=== PATIENT | male | born 1955 | race Caucasian/White ===

== ENCOUNTER → 2017-01-20 | Outpatient (CLI) | payer OTHER ==
[~2017-01-20] MED LIST: ACETAMINOPHEN/CODEINE 300/30MG TAB PO ONE; ALPR1TAB3 PO; AMOX875T PO; ASPI81TA28 PO; CYM/60 PO; DONE1TAB26 PO; DRGTP100 TD; FENT75DI2; FNTTP50 TD; ISR/30 PO; MRP15 PO; NEBULIZER INH; NTRGSL/4 UT; PRD10 PO; PRVHFAIN; SYMIN160 INH; TRAZ100T29 PO
--- NOTE | 2017-01-20 13:47 | DIAGNOSTIC IMAGING REPORT ---
PET/CT HISTORY: MALIGNANT NEOPLASM TECHNIQUE: PET/CT was performed from the base of the skull through the pelvis following the intravenous administration of 11.6 mCi of F18-FDG. Non-contrast CT imaging was performed over the same range without breath-hold for attenuation correction of PET images and anatomic correlation, but not for primary interpretation as it is not of standard diagnostic quality. CT DOSE: COMPARISON: Outside hospital chest abdomen and pelvis CT 12/27/2016. FINDINGS: HEAD AND NECK: Symmetric FDG uptake within the brain. There is lower cervical/supraclavicular lymphadenopathy which demonstrates intense FDG uptake with an SUV max of 6.6. Dominant lymph node on the right measures 2.5 cm. CHEST: Multiple enlarged and FDG avid coalescing lymph nodes throughout the mediastinum and extending into the right hilum. There is also perihilar FDG avid masslike opacities with multiple scattered perihilar nodules within the right upper lobe. There is also interstitial thickening within the majority of the right upper lobe and masslike densities abutting the right major fissure. These areas demonstrate intense FDG uptake with an SUV max of 7 at the right hilum. The right apical soft tissue tubular density is suggestive of peribronchial spread. Interstitial and pleural thickening within the right upper lobe is highly suggestive of lymphangitic spread of disease. A 7 mm irregular density within the left lung apex on image 58. This may represent an area of scarring. This does not demonstrate abnormal FDG uptake but is likely below the threshold for PET imaging. Emphysema. Severe stenosis within the right upper lobe bronchus and mild narrowing of the bronchus intermedius. There is moderate compression of the SVC ABDOMEN/PELVIS: Below the diaphragm, tracer is distributed physiologically in the gastrointestinal and genitourinary tracts. There is no significant lymphadenopathy and no FDG-avid disease. MUSCULOSKELETAL: There are few scattered foci of FDG uptake seen within the right humeral head, left acromion, right posterior seventh rib, right lateral eighth rib, right iliac crest, right posterior iliac bone, and left femoral neck. No definite corresponding lesion by CT. Regardless, these areas are highly suspicious for metastatic foci. Mild FDG uptake seen within the right mandible and left pterygoid plates. This could be physiologic with misregistration rather than abnormal osseous uptake. IMPRESSION: 1. Multiple enlarged and FDG avid lymph nodes throughout the mediastinum and extending into the right hilum consistent with malignancy. This favors a primary bronchogenic malignancy. There is also bilateral FDG avid lower cervical and supraclavicular lymphadenopathy. 2. Right perihilar FDG avid opacities with both peribronchial and lymphangitic spread of disease. This could also be due to a combination of superimposed post obstructive pneumonitis. There are few right perihilar FDG avid nodules and FDG avid pleural nodularity abutting the right major fissure. 3. A few scattered foci of FDG uptake within the osseous structures as described above without definite corresponding abnormality by CT. Regardless, this is highly suspicious for metastatic disease. Electronically signed by: Dashawn Dietz M.D. 01/20/2017 1:45 PM Dictated Date/Time: 01/20/2017 1:07 PM
== END | disposition home or self-care (01) ==
LOC: C.PET 07:54
PROVIDERS: ATTEND Physician Assistant
DX: C80.1 Malignant (primary) neoplasm, unspecified (principal)

== ENCOUNTER 2017-01-29 11:00 | Inpatient (IN) | payer OTHER ==
[2017-01-18 09:40] VITALS: BMI 24.0
[~2017-01-29] VITALS: Ht 175.3 cm; Wt 75.9 kg
[2017-01-29] VITALS (8 sets, daily range): BP systolic 102–121; BP diastolic 64–86; PULSE 87–124; TEMP 36.6–38; O2SAT 90–96; Ht 175.3 cm; Wt 75.9 kg
--- NOTE | 2017-01-29 06:59 | History and Physical ---
History & Physical Date Jan 29, 2017. Chief Complaint Lung Mass History of Present Illness The patient is a 61 year old male with complaints of Lung Mass 61-year-old male presents to the office to follow CT of the chest. Prior records reviewed. PMHx includes: Pulmonary emphysema, anxiety, hypertension, hematuria, pulmonary nodule, hepatitis C, history of head trauma. He has a h/o tobacco: 50+ pack year (1-2ppd since age 11yo, quit 2017) with dust exposure. Patient initially seen in the office 12/2015 with history of emphysema and dyspnea on exertion. W/U notable for PFTs consistent with reversable obstructive lung disease and CT notable for 4mm RUL lung nodule (as below). CT chest 01/01/2016 without evidence of interstitial lung disease notable for some changes of COPD. There is a right upper lobe lung nodule measuring 4mm. Unfortunately, he was a no-show for his follow-up appointment last year. Patient presents today with 6-month h/o progressive dyspnea and chronic cough. Cough paroxysm may be severe in nature and productive of phlegm occassionally yellow in the mornings. HE reports come cough with food as well. He was evaluated in the [facility] ER 12/27/16 for chest discomfort, dyspnea and abdominal pain. S/U included CXR suggeive of right hilar mass with subsequent CT chest (as below). WBC: 9.2. GFR: > 60. He was prescribed Ceftin x 10-days EKG : NSR. H CT chest 12/27/2016 describes diffuse mediastinal adenopathy with consolidation in the posterior segment of the right upper lobe. Consolidation within the posterior segment of the right upper lobe was attributed to postobstructive pneumonia. There are masses in the right upper lobe as well. There is a large area of adenopathy identified at the level of the subcarinal space at the takeoff of the left pulmonary artery measuring 7.8 x 6.5 centimeters. There is diffuse adenopathy identified in the right hilar region, right infrahilar region , subcarinal space, precarinal space, right lower paratracheal, right upper paratracheal, pretracheal, and left upper paratracheal regions. This is diffuse. There is a large right low lower paratracheal adenopathy measuring 6.4 per x 3.5 centimeters with mild deviation of the trachea to the left. This is concerning for malignancy. CT Abdomen and pelvis: benign. PFT 12/2015: FVC: 2.41/60 % (19 % change), FEV1: 1.02/32 % (38 % change,) FEV1/FVC: 42, FEF 25-75 %: 0.4/12 % (73 % change), FVC: 2.41/60 %, T.31 /86 %, RV: 2.9/130 %, DLCO:80% Additional History Hepatic Disease: No Endocrine Disorder: No Kidney Disease: No Hypertension: Yes Heart Disease: Yes Bleeding Tendencies: No Infectious Diseases: No Allergies Coded Allergies: Azithromycin (Unverified Allergy, Unknown, PER OR BOOOKING SHEET - 01/26/17 , 01/26/17) Latex1 -Allergic Contact Dermititis (Unverified Allergy, Unknown, PER OR BOOKING SHEET 01/26/17, 01/26/17) Home Medications Scheduled Alprazolam (Xanax), 1 MG PO QID Aspirin (Aspirin Ec), 81 MG PO AFTERNOON Donepezil Hydrochloride (Donepezil Hcl), 1 TAB PO QAM Duloxetine HCl (Cymbalta), 1-2 TAB PO QAM Isosorbide Dinitrate (Isordil), 30 MG PO QAM Trazodone Hcl (Trazodone), 2 TAB PO HS [Nebulizer ], Unknown Dose INH UD Scheduled PRN Nitroglycerin (Nitrostat), 0.4 MG UT PRN PRN for CHEST PAIN Miscellaneous Medications Albuterol (Ventolin Hfa), Unknown Dose Physical Examination Skin: warm/dry, no rash Eyes: normal inspection, EOMI, sclerae normal ENT: normal ENT inspection, pharynx normal Head: normocephalic, atraumatic Neck: supple, no adenopathy, trachea midline Respiratory/Chest: + pertinent finding (diminished lung sounds throught out ) Cardiovascular: regular rate, rhythm, no edema, no murmur Abdomen / GI: normal bowel sounds, non tender Back: normal inspection Extremities: normal inspection, normal range of motion Neurologic/Psych: no motor/sensory deficits, alert, normal reflexes, oriented x 3 Diagnosis Lung Mass ASA Classification: ASA Class III Plan of Treatment Flexible bronchoscopy, EBUS and ENB with TTNA, TBNA, Tbbx, cytology brushing and BAL
[~2017-01-29 11:00] MED LIST changes: -ACETAMINOPHEN/CODEINE 300/30MG TAB PO ONE; -AMOX875T PO; -DRGTP100 TD; -FENT75DI2; -FNTTP50 TD; +LACTATED RINGER'S 1000ML 1,000 ML IV SCH; -MRP15 PO; -PRD10 PO; -SYMIN160 INH
[2017-01-29] MEDS ORDERED: FENTANYL CITRATE INJ 50 MCG/1 ML 2 ML VIAL ONE (11:04)
[2017-01-29] MEDS ORDERED: MIDAZOLAM HCL 1 MG/ML 2ML VIAL ONE (11:04)
[2017-01-29] MEDS ORDERED: FENT75DI2 (11:42)
[2017-01-29] MEDS ORDERED: FNTTP50 TD (11:43)
--- NOTE | 2017-01-29 11:50 | DIAGNOSTIC IMAGING REPORT ---
SINGLE VIEW CHEST CLINICAL HISTORY: Lung mass. FINDINGS: An AP, portable, upright chest radiograph is compared to chest x-ray and chest CT dated 12/27/2016. The examination is degraded by portable technique and patient rotation. The heart is top normal in size and there is atherosclerotic calcification of the thoracic aorta. Advanced emphysema and chronic interstitial thickening is unchanged. A large right perihilar/upper lobe lung mass is again seen. There is increasing patchy airspace consolidation throughout the right upper lobe as compared to previous. The left lung is grossly clear. No large pleural effusion or pneumothorax is seen. The skeletal structures are osteopenic. The bony thorax is grossly intact. IMPRESSION: 1. Advanced emphysema with a large right perihilar/upper lobe lung mass. 2. There is increasing airspace consolidation throughout the right upper lobe. This likely represents a postobstructive pneumonitis, with probable associated lymphangitic spread of tumor. Clinical correlation will be required. 3. The left lung appears clear. Electronically signed by: Aamir Carmichael M.D. 01/29/2017 11:49 AM Dictated Date/Time: 01/29/2017 11:46 AM
[2017-01-29 12:08] LABS: ARTERIAL BLD GAS O2 SATURATION 98.6 % (90-95); ARTERIAL BLOOD GAS BASE EXCESS 6.9 mEq/L (-9-1.8); ARTERIAL BLOOD GAS HCO3 32 mmol/L (19-24); ARTERIAL BLOOD GAS PO2 123 mm/Hg (80-95); ARTERIAL BLOOD GAS pH 7.44 (7.35-7.45)
[2017-01-29 12:09] LABS: ALLEN TEST POS (POS); O2 ADMINISTRATION 3 L
[2017-01-29] MEDS ORDERED: ACETAMINOPHEN/CODEINE 300/30MG TAB PO ONE (14:00)
[2017-01-29] MEDS ORDERED: LEVALBUTEROL 1.25MG/0.5ML NEB INH PRN (15:15)
[2017-01-29] MEDS ORDERED: LORAZEPAM 1 MG TAB PO PRN (15:15)
[2017-01-29] MEDS ORDERED: VANCOMYCIN CONSULT ACTIVE PRN (15:45)
[2017-01-29] MEDS ORDERED: PIPERACILL/TAZOBAC CONSULT ACTIVE PRN (15:45)
--- NOTE | 2017-01-29 15:46 | Pulmonary Consultation ---
History General Date of Service: Jan 29, 2017. Stated Complaint: Hypoxia, Post Op Pneumonia HPI The patient is a 61 year old male who presents to [facility] with complaints of Hypoxia, Post Op Pneumonia. The patient's primary care provider is Rikki Dhaliwal. 61-year-old male being admitted for acute on chronic respiratory insufficiency: He has a PmHx significant for: ACOS (Very sever COPD-FEV1: 32%) (Significant reversibility in the FEV1&FVC), anxiety, hypertension, hematuria, hepatitis C and head trauma. He has an h/o tobacco: 50+ pack year (1-2ppd since age 11yo, quit 2017). He was recent seen and evaluated in the [facility] ER 12/27/16 for chest discomfort, dyspnea and abdominal pain. S/U included CXR suggestive of right hilar mass with subsequent CT chest (as below). WBC: 9.2. GFR: > 60. He was prescribed Ceftin x 10-days EKG: NSR. CT chest 12/27/2016 describes diffuse mediastinal adenopathy with consolidation in the posterior segment of the right upper lobe. Consolidation within the posterior segment of the right upper lobe was attributed to post obstructive pneumonia. There are masses in the right upper lobe as well. There is a large area of adenopathy identified at the level of the sub carinal space at the takeoff of the left pulmonary artery measuring 7.8 x 6.5 centimeters. There is diffuse adenopathy identified in the right hilar region, right infrahilar region, sub carinal space, pre- carinal space, right lower para-tracheal, right upper para-tracheal, pre- tracheal, and left upper para-tracheal regions. This is diffuse. There is a large right low lower para-tracheal adenopathy measuring 6.4 per x 3.5 centimeters with mild deviation of the trachea to the left. He was seen in the [facility] pulmonary clinic and set up for EBUS/ENB for further work-up. He presented today for the procedures and as noted to be severely decompensated and the procedure was d/c. Previous Evaluation: Patient initially seen in the office [address] thorax 01/01/2016 noted a RUL 4mm nodule with associated emphysema. His PFTs at that time where consistent with reversible obstructive lung disease. Unfortunately, he was a no-show for his follow-up appointment last year. PFT 12/2015: FVC: 2.41/60 % (19 % change), FEV1: 1.02/32 % (38 % change,) FEV1/FVC: 42, FEF 25-75 %: 0.4/12 % (73 % change), FVC: 2.41/60 %, T.31 /86 %, RV: 2.9/130 %, DLCO:80% ABG (01/29/17) 7.44/48/123/323Lnc Recently seen in the office with an SaO2 of 94% on RA Historian: patient, EMS Review of Systems Constitutional: reports: as stated in HPI Eyes: reports: no symptoms ENT: reports: no symptoms Cardiovascular: reports: as stated in HPI Respiratory: reports: as stated in HPI Gastrointestinal: reports: no symptoms Genitourinary - Male: reports: no symptoms Musculoskeletal: reports: as stated in HPI Integumentary: reports: no symptoms Neurologic: reports: no symptoms Psychiatric: reports: no symptoms Endocrine: no symptoms Hematologic / Lymphatic: no symptoms Allergic / Immunologic: no symptoms Past Medical History Past Medical History: 1. Agoraphobia with panic attacks 2. Chest pain 3. ACOS (Very sever COPD-FEV1: 32%)(Significant reversibility in the FEV1&FVC) 4. Chronic pain 5. Chronic viral hepatitis C 6. Dyspnea 7. Heart disease 8. Hypertension 9. Intervertebral disc degeneration, lumbar region 10. Tobacco use disorder 11. Lung Mass Social History Current every day smoker: 50+ pack year (1-2ppd since age 11yo, quit 2017) Denies alcohol consumption History of marijuana use Hx Tobacco Use In Past Year?: Yes (10 CIGS PER DAY....SMOKING SINCE AGE 11) Smoking Status: Current Every Day Smoker Allergies Coded Allergies: No Known Allergies (Unverified , 01/29/17) Current Medications Reported Home Medications Medications Dose Route/Sig Max Daily Dose Days Date Category Dose Instructions Duragesic (Fentanyl) 50 Mcg Tdsy 50 Mcg TD [id number] 01/29/17 Reported [Nebulizer ] Unknown Strength Unknown Dose INH UD 01/18/17 Reported UNKNOWN NAME AND DOSE OF NEB - PT REPORTS DOES NOT USE THIS CONSISTENTLY Ventolin Hfa (Albuterol) Unknown Strength Aers Unknown Dose 01/18/17 Reported 2 PUFFS PRN SOB PT INSTRUCTED TO BRING THIS INAHLER DAY OF SURGERY Aspirin Ec (Aspirin) 81 Mg Tab 81 Mg PO AFTERNOON 01/18/17 Reported PT INSTRUCTED TO CALL SURGEON FOR PRE OP INSTRUCTIONS Nitrostat (Nitroglycerin) 0.4 Mg Tab 0.4 Mg UT PRN PRN 01/18/17 Reported Xanax (Alprazolam) 1 Mg Tab 1 Mg PO QID 01/18/17 Reported Cymbalta (Duloxetine HCl) 60 Mg Cap 1-2 Tab PO QAM 01/18/17 Reported Donepezil Hcl (Donepezil Hydrochloride) 10 Mg Tab 1 Tab PO QAM 01/18/17 Reported Isordil (Isosorbide Dinitrate) 30 Mg Tab 30 Mg PO QAM 01/18/17 Reported Trazodone (Trazodone HCl) 100 Mg Tab 2 Tab PO HS 01/18/17 Reported Physical Physical Exam Vital Signs: Date Time Temp Pulse Resp B/P Pulse Ox O2 Delivery O2 Flow Rate FiO2 01/29/17 15:25 36.7 105 20 102/64 92 Nasal Cannula 4.0 01/29/17 14:35 Nasal Cannula 4.0 01/29/17 14:31 36.8 110 18 112/78 96 4.0 01/29/17 11:44 38 124 24 119/86 95 Nasal Cannula 3 General Appearance: cachetic Head: NORMOCEPHALIC, ATRAUMATIC Eyes: PERRLA, NO DISCHARGE, EOMI, SCLERAE NORMAL, CONJUNCTIVAE NORMAL ENT: NORMAL EAR EXAM, NORMAL NASAL EXAM, NORMAL MOUTH EXAM, NORMAL THROAT EXAM , NORMAL DENTAL EXAM Neck: NORMAL RANGE OF MOTION, NO TENDERNESS, NO STRIDOR, NO LYMPHADENOPATHY, NO MENINGISMUS, NO NUCHAL RIGIDITY Respiratory: other (decreased breath sounds right hemithorax especially the apical anterior region/notable rhonchi or wheezing appreciated on the left hemithorax) Cardiovasular: REGULAR RATE/RHYTHM, NORMAL S1S2, NO M/G/R, NO MURMUR, NO GALLOP , NO RUB Abdomen: NON TENDER, NORMAL BOWEL SOUNDS, NO REBOUND, NO MASSES, NO GUARDING, NO ORGANOMEGALY, NORMAL RECTAL EXAM Genitourinary - Male: EXTERNAL GENITALIA NORMAL Back: NORMAL INSPECTION, NO MIDLINE TENDERNESS, NO CVA TENDERNESS, NO PARAVERTEBRAL TTP Upper Extremities: NO EDEMA, NO DEFORMITY, NORMAL ROM Lower Extremities: NO EDEMA, NO DEFORMITY, NORMAL ROM Pulses: carotid (R) (2+), carotid (L) (2+), posterior tibial (R), posterior tibial (L) Neuro: ALERT, ORIENTED x 3, NORMAL MOTOR EXAM, NORMAL SENSATION, NORMAL CEREBELLAR EXAM, NORMAL SPEECH Reflexes: biceps (R) (2+), bicpes (L) (2+), achilles (R) (2+), achilles (L) (2+ ) Babinski Testing: right (downgoing), left (downgoing) Psychiatric: NORMAL AFFECT, NO SUICIDAL IDEATION, CONTRACTS FOR SAFETY Diagnostics Labs Results Past 24 Hours Test 01/29/17 11:45 01/29/17 15:10 Range/Units Arterial Blood pH 7.44 7.35-7.45 Arterial Blood Partial Pressure CO2 48 35-46 mmHg Arterial Blood Partial Pressure O2 123 80-95 mm/Hg Arterial Blood HCO3 32 19-24 mmol/L Arterial Blood Oxygen Saturation 98.6 90-95 % Arterial Blood Base Excess 6.9 -9-1.8 mEq/L Arterial Blood Gas Delivery 3 L Eliceo Test POS POS Diagnostic Radiology Increased hilar fullness on the right hemithorax with diffuse infiltrative pattern mostly in the right upper/apical subsegment's Impression Assessment and Plan 61-year-old gentleman with lung mass being admitted for acute on chronic respiratory insufficiency: #1 lung mass: Patient was to undergo either/ENB today for further evaluation of his lung mass but presented in notable acute on chronic respiratory insufficiency. The lung mass is most likely primary lung carcinoma but at this time no definitive diagnosis has been made. CT as well as PET scan have been reviewed and once again are highly suggestive of primary lung carcinoma. As the patient cannot undergo procedure at this time we'll obtain sputum cytology for possible diagnosis. We'll also repeat high resolution CAT scan for further evaluation and sent for MRI of the head for possible metastatic lesion as the patient does complain of some vertigo type symptoms. #2 pneumonia: Patient possibly could have postobstructive pneumonia will initiate on Zosyn and vancomycin disease had multiple hospital admissions over the last 2-[address] [facility]. #3 ACOS: The patient has very severe COPD and FEV1 of 32%. He is also noted on pulmonary function tests to have significant reversibility both in his FEV1 and FVC. At this time we will initiate IV steroids and nebulizers. We'll hold off on his outpatient medication as he is unable to perform proper inhalation/ inhaler technique. #4 chest pain: Penis consistent with musculoskeletal as well as pleurisy. At this time we'll initiate Tylenol/codeine for musculoskeletal discomfort and if patient's renal function is within normal limits initiate Toradol IV.
[2017-01-29] MEDS: METHYLPREDNISOLONE IV 40 MG in SYRINGE 0 ML IV SCH (16:01)
[2017-01-29] MEDS ORDERED: SYMIN160 INH (16:07)
[2017-01-29] MEDS ORDERED: POLYETHYLENE (MIRALAX) 17 GM PACK PO PRN (16:15)
[2017-01-29] MEDS ORDERED: PNEUMOCOCCAL POLYSACCHARIDES 25 MCG/0.5 ML VIAL/SYR IM. ONE (16:15)
[2017-01-29] MEDS ORDERED: ONDANSETRON INJ 2 MG/ML 2 ML VIAL IV PRN (16:15)
[2017-01-29] MEDS ORDERED: NITROGLYCERIN 0.4 MG SL PER TAB CHARGE UT PRN (16:15)
[2017-01-29] MEDS ORDERED: ACETAMINOPHEN 325 MG TAB PO PRN (16:15)
[2017-01-29] MEDS ORDERED: MAGNESIUM HYDROXIDE SUSP 30 ML UDC PO PRN (16:15)
[2017-01-29] MEDS ORDERED: PNEUMOCOCCAL ADMINISTRATION CHARGE ONE (16:15)
[2017-01-29] MEDS ORDERED: ALUMINUM/MAGNESIUM/SIMETH (MAALOX MAX) 30 ML UDC PO PRN (16:15)
--- NOTE | 2017-01-29 16:54 | History and Physical ---
History & Physical Date & Time of Service: Jan 29, 2017 at 16:16 Chief Complaint: Hypoxia, Post Op Pneumonia Primary Care Physician: Gloria Dhaliwal History of Present Illness Source: patient, clinic records, hospital records This is a 61 y/o male with a history of RUL masses and adenopathy, COPD, HTN, anxiety and agoraphobia, chronic hepatitis C, and chronic pain who presented for a direct admission following a bronchoscopy attempt today, 01/29, with Dr. Jones. The patient had been scheduled for EBUS/ENB for further work up of CT findings in December 2015 that were concerning for malignancy. The procedures were aborted after the patient began to decompensate and go into respiratory failure. Currently, the patient complains of a 8/10 sharp, pulling pain in his right chest, right neck/jaw and right arm. He also complains of a productive cough with thick, white sputum. He states that he is more short of breath than usual. He denies any wheezing. The patient denies any fevers or chills, although he was febrile earlier prior to admission per hospital records. The patient denies any sweats recently, but states that he used to get night sweats. The patient reports numbness all over his body, but states that this is chronic and has been going on for several years. The patient denies fevers, chills, sweats, palpitations, claudication, wheezing, nausea, vomiting, abdominal pain, dysuria, hematuria, urinary retention, paralysis, and weakness. Past Medical/Surgical History Right perihilar/RUL mass on CT COPD HTN Anxiety, agoraphobia with panic attacks Chronic pain Chronic hepatitis C Family History Cancer Diabetes mellitus Hypertension Lung disease Myocardial infarction Stroke Social History Smoking Status: Current Every Day Smoker (had quit earlier in 2017, restarted again after finding out about tumor) Smokeless Tobacco Use: No Alcohol Use: none Drug Use: none Marital Status: in relationship Housing status: lives with significant other Allergies Coded Allergies: No Known Allergies (Unverified , 01/29/17) Home Medications Scheduled Alprazolam (Xanax), 1 MG PO QID Aspirin (Aspirin Ec), 81 MG PO AFTERNOON Budesonide/Formoterol Fumarate (Symbicort 160/4.5 Inhaler), 2 PUFFS INH BID Donepezil Hydrochloride (Donepezil Hcl), 1 TAB PO QAM Duloxetine HCl (Cymbalta), 1 TAB PO QAM Fentanyl (Duragesic), 50 MCG TD [id number] Isosorbide Dinitrate (Isordil), 30 MG PO QAM Trazodone Hcl (Trazodone), 2 TAB PO HS [Nebulizer ], Unknown Dose INH UD Scheduled PRN Nitroglycerin (Nitrostat), 0.4 MG UT PRN PRN for CHEST PAIN Miscellaneous Medications Albuterol (Ventolin Hfa), Unknown Dose Review of Systems Constitutional: No chills, No fever, No sweats Eyes: No diplopia, No eye pain, No worsening of vision ENT: No hearing loss, No sore throat, No trouble swallowing Respiratory: + cough, + shortness of breath, + sputum, No wheezing Cardiovascular: + chest pain, No claudication, No palpitations Abdomen: No nausea, No pain, No vomiting Musculoskeletal: + joint pain (pain in right arm/jaw), No calf pain, No muscle pain Genitourinary - Male: No dysuria, No hematuria, No urinary retention Neurologic: + numbness/tingling (chronic), No paralysis, No weakness Integumentary: No color change, No itch, No rash Physical Exam Vital Signs Date Time Temp Pulse Resp B/P Pulse Ox O2 Delivery O2 Flow Rate FiO2 01/29/17 15:25 36.7 105 20 102/64 92 Nasal Cannula 4.0 01/29/17 14:35 Nasal Cannula 4.0 01/29/17 14:31 36.8 110 18 112/78 96 4.0 01/29/17 11:44 38 124 24 119/86 95 Nasal Cannula 3 General Appearance: WD/WN, no apparent distress, + pertinent finding (appears chronically ill) Head: normocephalic, atraumatic Eyes: normal inspection, PERRL, EOMI ENT: normal ENT inspection, hearing grossly normal, pharynx normal Neck: supple, no JVD, trachea midline Respiratory/Chest: no respiratory distress, + rhonchi, + wheezing, + pertinent finding (resting on 4L) Cardiovascular: regular rate, rhythm, no gallop, no murmur Abdomen/GI: normal bowel sounds, non tender, soft Extremities/Musculoskelatal: normal inspection, no calf tenderness, no pedal edema Neurologic/Psych: alert, normal mood/affect, oriented x 3 Skin: normal color, warm/dry, no rash Diagnostics Laboratory Results Results Past 24 Hours Test 01/29/17 11:45 01/29/17 15:10 Range/Units Arterial Blood pH 7.44 7.35-7.45 Arterial Blood Partial Pressure CO2 48 35-46 mmHg Arterial Blood Partial Pressure O2 123 80-95 mm/Hg Arterial Blood HCO3 32 19-24 mmol/L Arterial Blood Oxygen Saturation 98.6 90-95 % Arterial Blood Base Excess 6.9 -9-1.8 mEq/L Arterial Blood Gas Delivery 3 L Eliceo Test POS POS Diagnostic Radiology Per Dr. Jones's notes: CT chest 01/01/2016 without evidence of interstitial lung disease notable for some changes of COPD. There is a right upper lobe lung nodule measuring 4mm. CT chest 12/27/2016 describes diffuse mediastinal adenopathy with consolidation in the posterior segment of the right upper lobe. Consolidation within the posterior segment of the right upper lobe was attributed to postobstructive pneumonia. There are masses in the right upper lobe as well. There is a large area of adenopathy identified at the level of the subcarinal space at the takeoff of the left pulmonary artery measuring 7.8 x 6.5 centimeters. There is diffuse adenopathy identified in the right hilar region, right infrahilar region , subcarinal space, precarinal space, right lower paratracheal, right upper paratracheal, pretracheal, and left upper paratracheal regions. This is diffuse. There is a large right low lower paratracheal adenopathy measuring 6.4 per x 3.5 centimeters with mild deviation of the trachea to the left. This is concerning for malignancy. Reviewed the following studies and agree with interpretation as follows: Patient Name: PAT MORALES Unit Number: [id number] Dictated: 01/29/171145 Transcribed: 01/29/171145 EV Printed Date/Time: [~ rep prt dt]/[~ rep prt tm] [~ rep ct labl] - [~ rep ct ivnm] [facility] [place] [address] Dictated: 01/29/171145 Transcribed: 01/29/17 114 EV Printed Date/Time: [~ rep prt dt]/[~ rep prt tm] [~ rep ct labl] - [~ rep ct ivnm] Patient: PAT MORALES Address1: [address] [facility] Rec: [id number] Address2: Acct ID: [id number] [facility] Zip: [place] [address] Date: 1955 Sex: M Room/Bed: Ref Phy: GLORIA DHALIWAL SC: VERENA Att Phy: Pawan Jones MD Report #: [id number] [place] Phy: GLORIA DHALIWAL Test: CXR1P Admit Phy: Internal Investigator: NICO Interpreting Phy: Aamir Carmichael M.D. Diagnosis: LYMPHADENOPATHY Ordering Phy: Pawan Jones MD Service Date: 01/29/17 Admit Date: 01/29/17 MNE: [id number] CONF: DICTATED BY: Aamir Carmichael M.D.]] CC: GLORIA DHALIWAL Thomas W., MD Endcc: [~ rep ct add3]] SINGLE VIEW CHEST CLINICAL HISTORY: Lung mass. FINDINGS: An AP, portable, upright chest radiograph is compared to chest x-ray and chest CT dated 12/27/2016. The examination is degraded by portable technique and patient rotation. The heart is top normal in size and there is atherosclerotic calcification of the thoracic aorta. Advanced emphysema and chronic interstitial thickening is unchanged. A large right perihilar/upper lobe lung mass is again seen. There is increasing patchy airspace consolidation throughout the right upper lobe as compared to previous. The left lung is grossly clear. No large pleural effusion or pneumothorax is seen. The skeletal structures are osteopenic. The bony thorax is grossly intact. IMPRESSION: 1. Advanced emphysema with a large right perihilar/upper lobe lung mass. 2. There is increasing airspace consolidation throughout the right upper lobe. This likely represents a postobstructive pneumonitis, with probable associated lymphangitic spread of tumor. Clinical correlation will be required. 3. The left lung appears clear. Electronically signed by: Aamir Carmichael M.D. 01/29/2017 11:49 AM Dictated Date/Time: 01/29/2017 11:46 AM The status of this report is Signed. Draft = Not yet reviewed or approved by Radiologist. Signed = Reviewed and approved by Radiologist. <AttendingPhy>Pawan Jones MD</AttendingPhy> <FamilyPhy>GLORIA DHALIWAL</FamilyPhy> <PrimaryPhy>GLORIA DHALIWAL</PrimaryPhy> <UnitNumber >[id number]</UnitNumber> <VisitNumber>[id number]</VisitNumber> <PatientName> PAT MORALES</PatientName> <DateOfBirth>1955</DateOfBirth> <Location> [facility]</Location> <ServiceDate>01/29/17</ServiceDate> <MNE>ESINDI</MNE> < OrderingPhy>Pawan Jones MD</OrderingPhy> <OrderingPhyMNE>f rep ord dr eller</OrderingPhyMNE> <DictatingPhyMNE>f rep dict dr eller</DictatingPhyMNE> < CCListMNE>f rep ct mne</CCListMNE> <AdmittingPhyMNE>f pt admit dr eller</ AdmittingPhyMNE> <AttendingPhyMNE>f pt attend dr eller</AttendingPhyMNE> <ConsultingPhyMNE>f pt consult dr eller</ConsultingPhyMNE> <FamilyPhyMNE>f pt fam dr eller</FamilyPhyMNE> <OtherPhyMNE>f pt other dr eller</OtherPhyMNE> < PrimaryPhyMNE>f pt prim care dr eller</PrimaryPhyMNE> <ReferringPhyMNE>f pt referring dr eller</ReferringPhyMNE> Impression Assessment and Plan 61 y/o male with a history of RUL masses and adenopathy, COPD, HTN, anxiety and agoraphobia, chronic hepatitis C, and chronic pain who presented for a direct admission following a bronchoscopy attempt today, 01/29, with Dr. Jones. The patient had been scheduled for EBUS/ENB for further work up of CT findings in December 2015 that were concerning for malignancy. The procedures were aborted after the patient began to decompensate and go into respiratory failure. Currently, patient afebrile and VSS. CXR shows advanced emphysema, large right perihilar/RUL mass, and increased airspace consolidation in RUL which may represent post obstructive pneumonitis/PNA. Likely post obstructive pneumonia secondary to RUL mass--pt scheduled for EBUS/ ENB today, aborted due to respiratory failure -Admit to telemetry -Consult pulmonology, Dr. Jones: Vanc and Zosyn for post obstructive PNA. High resolution chest CT. Check MRI head for mets due to complaints of vertigo. Check sputum cytology. IV steroids and nebs for COPD, hold pt's home regimen. Tylenol #3 for chest pain, can add Toradol if renal function allows. -Vanc and Zosyn IV, pt recently admitted to [facility] -O2 by protocol, currently on 4L. Pt does not wear O2 at home -Sputum cytology -HR CT chest -MRI of head for mets Chest pain/jaw and arm pain right side--pleurisy vs fascia -Tylenol/codeine PO q6h prn pain Severe COPD -Atrovent/Xopenex QIDR -Solu-Medrol 40 mg IV q4h, 3x/day -Hold Symbicort HTN--stable -Continue isosorbide 30 mg PO qd Anxiety/agoraphobia/panic attacks -Continue Ativan 1 mg PO QID and Cymbalta 60 mg PO qd Chronic pain -Continue fentanyl patch 50 mcg TD q72h DVT prophylaxis -Heparin 5000 units SC q12h -VASYL travis and JESICAs Code Status -Level I, FULL RESUSCITATION STATUS Level of Care Telemetry Advanced Directives Existing Living Will: No Existing Power of Steam Fitter: No Resuscitation Status FULL RESUSCITATION VTE Prophylaxis VTE Risk Assessment Done? Y/N: Yes Risk Level: High Given or contraindicated: Unfractionated heparin SQ, T.E.D. Stockings, SCD's Reviewed: Pt Seen/Exam by Me History Pt is still quite SOB, but a bit improved s/p nebs. Still with a feeling of something pulling along the R side of his chest into his neck and jaw. Has not eaten much lately. Agree with HPI/ROS as noted. General Appearance: WD/WN, no apparent distress Respiratory: no respiratory distress, wheezing Cardiovascular: normal peripheral pulses, regular rate, rhythm Gastrointestinal: non tender, soft Extremities: non-tender, no pedal edema Neurologic/Psychiatric: alert, oriented x 3 Skin Characteristics: normal color, warm/dry Assessment/Plan Agree with plan as outlined above Pt with likely lung cancer and now with post-obstructive PNA Zosyn/vanco Several recent hospitalizations with [facility] José Nicotine patch
[2017-01-29] MEDS ORDERED: PIPERACILL/TAZOBAC IV 3.375 GM in DEXTROSE 5% 100ML IV ONE (17:00)
[2017-01-29 17:14] LABS: INR 1.1 (0.9-1.1); PARTIAL THROMBOPLASTIN RATIO 1.1
[2017-01-29 17:22] LABS: HEMATOCRIT 38.6 % (42-52); MEAN CELL VOLUME 93.9 fL (80-100); MEAN CORPUSCULAR HEMOGLOBIN 32.4 pg (25-34); MEAN CORPUSCULAR HGB CONC 34.5 g/dl (32-36); MEAN PLATELET VOLUME 8.7 fL (7.4-10.4); PLATELET COUNT 91 K/uL (130-400); PLT ESTIMATE DECREASED; RED BLOOD COUNT 4.11 M/uL (4.7-6.1); WHITE BLOOD COUNT 9.36 K/uL (4.8-10.8)
[2017-01-29 17:26] LABS: BUN/CREATININE RATIO 15.3 (10-20); CALCIUM 9.3 mg/dl (8.5-10.1); CREATININE 1.1 mg/dl (0.60-1.40)
[2017-01-29 17:28] LABS: ALB/GLOB RATIO 0.6 (0.9-2)
[2017-01-29] MEDS: FENTANYL PATCH REMOVE & WASTE SCH (17:34)
[2017-01-29] MEDS: FENTANYL 50 MCG/HR TDSY TD SCH (17:36)
[2017-01-29] MEDS ORDERED: PIPERACILL/TAZOBAC IV 3.375 GM in DEXTROSE 5% 100ML 100 ML IV SCH (18:00)
[2017-01-29] MEDS ORDERED: VANCOMYCIN INJ 1,850 MG in SODIUM CHLORIDE 0.9% 500ML 500 ML IV SCH (18:00)
[2017-01-29] MEDS: LEVALBUTEROL 1.25MG/0.5ML NEB INH SCH (19:02)
[2017-01-29] MEDS: IPRATROPIUM BROMIDE NEB SOLN 0.02% 2.5 ML VIAL INH SCH (19:02)
[2017-01-29] MEDS: DORNASE ALFA (2500U) 2.5MG/2.5ML INH SCH (19:09)
[2017-01-29] MEDS: ACETAMINOPHEN/CODEINE 300/30MG TAB PO PRN (20:45)
[2017-01-29] MEDS: TRAZODONE HCL 100 MG TAB PO SCH (20:46)
[2017-01-29] MEDS: HEPARIN SOD 5000 UNIT/0.5 ML CARP SQ SCH (20:47)
[2017-01-29] MEDS ORDERED: BUDESONIDE/FORMOTEROL FUMARATE 160/4.5 60 PUFFS/INHALER INH SCH (21:00)
[2017-01-29] MEDS ORDERED: LEVALBUTEROL/IPRATROPIUM NEB INH SCH (21:00)
[2017-01-29] MEDS: ALPRAZOLAM 0.5 MG TAB PO SCH (21:16)
--- NOTE | 2017-01-29 22:48 | Pharmacy Progress Note ---
Pharmacy Antibiotic Consult Date of Service: Jan 29, 2017. Pharmacy Dosing Scope Pharmacy is consulted to initiate VANCOMYCIN IV dosing therapy, order appropriate labs and adjust drug dose/frequency. Subjective The patient is a 61 year old male admitted on Jan 29, 2017 at 13:08. Objective Height (Feet): 5 Height (Inches): 9.00 Weight (Kilograms): 74.000 Lab Results (24hrs): Laboratory Tests Test 01/29/17 16:50 BUN/Creatinine Ratio 15.3 Blood Urea Nitrogen 17 mg/dl Creatinine 1.10 mg/dl White Blood Count 9.36 K/uL Assessment & Plan 61yo male admitted with pneumonia, ordered VANCOMYCIN/ZOSYN. Renal function is good (SCr 1.1, CrCl ~71 ml/min). VANCOMYCIN: * Loading dose: VANCOMYCIN 1850mg (~25mg/kg) IV X 1 dose then VANCOMYCIN 1100mg (~15mg/kg) IV every 12 hours. * Goal trough level estimate: between 15 - 20 mcg/mL. * Estimated Pk parameters: Vd ~0.7 L/kg Ke ~0.063 t1/2 ~11 hours * Trough level has been ordered for: @ 0600. Pharmacy will continue to follow and will adjust dose/frequency as necessary. Thank you
[2017-01-30] VITALS (12 sets, daily range): BP systolic 113–151; BP diastolic 66–85; PULSE 86–94; TEMP 36.4–36.8; O2SAT 87–96
[2017-01-30] MEDS: PIPERACILL/TAZOBAC IV 3.375 GM in DEXTROSE 5% 100ML IV SCH ×4 (00:27→23:55)
[2017-01-30] MEDS: CHECK FENTANYL PATCH PLACEMENT SCH ×4 (00:28→23:56)
[2017-01-30] MEDS: IPRATROPIUM BROMIDE NEB SOLN 0.02% 2.5 ML VIAL INH SCH ×4 (02:18→19:47)
[2017-01-30] MEDS: LEVALBUTEROL 1.25MG/0.5ML NEB INH SCH ×4 (02:18→19:47)
[2017-01-30] MEDS: VANCOMYCIN INJ 1,100 MG in SODIUM CHLORIDE 0.9% 250ML 250 ML IV SCH ×2 (05:25→17:52)
[2017-01-30] MEDS: DORNASE ALFA (2500U) 2.5MG/2.5ML INH SCH ×2 (07:44→19:47)
[2017-01-30 08:14] LABS: CREATININE 0.97 mg/dl (0.60-1.40)
[2017-01-30] MEDS: NICOTINE 21 MG/24 HR TDSY TD SCH (08:31)
[2017-01-30] MEDS: DULOXETINE HCL 60 MG CAP PO SCH (08:32)
[2017-01-30] MEDS: DONEPEZIL HCL 10 MG TAB PO SCH (08:33)
[2017-01-30] MEDS: ISOSORBIDE DINITRATE 10 MG TAB PO SCH (08:33)
[2017-01-30] MEDS: ALPRAZOLAM 0.5 MG TAB PO SCH ×4 (08:35→20:58)
[2017-01-30] MEDS: ACETAMINOPHEN/CODEINE 300/30MG TAB PO PRN ×3 (08:35→19:37)
[2017-01-30] MEDS ORDERED: ASPIRIN 81 MG ECTAB PO SCH (09:00)
[2017-01-30] MEDS: HEPARIN SOD 5000 UNIT/0.5 ML CARP SQ SCH ×2 (09:28→21:01)
--- NOTE | 2017-01-30 10:15 | DIAGNOSTIC IMAGING REPORT ---
CHEST CT WITHOUT CONTRAST CT DOSE: 248.08 mGy.cm HISTORY: lung mass with possible pna TECHNIQUE: Multiaxial CT images of the chest were performed without contrast. COMPARISON: PET CT 01/20/2017. FINDINGS: 7 mm irregular density at the left lung apex, unchanged. Mild emphysema. No suspicious lytic or blastic osseous lesions identified. Bilateral cervical lymphadenopathy is again noted. Dominant right cervical lymph node measures 13 mm. Mediastinal lymphadenopathy, unchanged. Right hilar/perihilar mass is again noted. This measures approximately 6.5 x 6.5 cm. This invades into the right hilum and surrounds the right mainstem bronchus. There is mass effect along the SVC which appears narrowed. No significant left hilar lymphadenopathy. The the right hilar mass results in high-grade stenosis of the right upper lobe bronchus. Progressive interstitial thickening and progressive airspace opacities within the majority of the right upper lobe. The masslike opacities abut and deform the right major fissure. IMPRESSION: 1. There is again noted a large right hilar/perihilar mass which measures 6.5 cm. This results in high-grade stenosis of the right upper lobe bronchus. 2. Progressive right perihilar airspace opacities with progressive interstitial thickening. This likely represents a combination of lymphangitic spread of disease and a postobstructive pneumonitis. 3. Supraclavicular, mediastinal, and right hilar lymphadenopathy is again noted. 4. Emphysema. 5. The right hilar mass/lymphadenopathy results in narrowing of the SVC. Electronically signed by: Dashawn Dietz M.D. 01/30/2017 10:14 AM Dictated Date/Time: 01/30/2017 10:05 AM
[2017-01-30] MEDS: METHYLPREDNISOLONE IV 40 MG in SYRINGE 0 ML IV SCH ×3 (10:27→16:53)
[2017-01-30] MEDS ORDERED: NURSING VERBAL MED ORDER ONE (10:30)
--- NOTE | 2017-01-30 11:41 | DIAGNOSTIC IMAGING REPORT ---
Brain MRI WITH AND WITHOUT CONTRAST HISTORY: Lung cancer. Assess for metastatic disease. TECHNIQUE: Multiplanar multisequence MRI of the brain was performed both before and after the intravenous administration of contrast. COMPARISON STUDY: None. FINDINGS: There is no mass, hematoma, midline shift, or acute infarct. The paranasal sinuses are clear. The mastoid air cells are clear. The ventricles and sulci demonstrate mild age-related involutional changes. Scattered foci of T2 hyperintensity seen within the periventricular and subcortical white matter are nonspecific but suggestive of mild microvascular ischemic changes. The major vascular flow voids at the skull base are well-maintained. No abnormal enhancement within the brain. Old lacunar infarction within the left basal ganglia. There are slightly enhancing T1 hypointense lesion seen within the clivus, midline shift occipital bones, and upper cervical spine. Dominant occipital bone lesion measures 13 mm. These also demonstrate restricted diffusion. Therefore, these are consistent with metastatic foci. IMPRESSION: 1. 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 2. No abnormal enhancement within the brain to suggest intracranial metastatic disease. Electronically signed by: Dashawn Dietz M.D. 01/30/2017 11:40 AM Dictated Date/Time: 01/30/2017 11:32 AM
--- NOTE | 2017-01-30 15:03 | Progress Note ---
Subjective Date of Service: Jan 30, 2017. Subjective Pt evaluation today including: conversation w/ patient, conversation w/ family , physical exam, chart review, lab review, review of studies, conversation w/ technology sales consultant, review of inpatient medication list Complaining of right chest wall pain, radiation to right neck and right arm, reported cough, sob and uncomfortable Review of Systems Constitutional: No chills, No fever Respiratory: + see HPI, + wheezing Cardiac: + chest pain, + orthopnea Abdomen: No GI bleeding, No constipation, No diarrhea, No nausea, No pain, No problem reported, No see HPI, No vomiting Neurologic: No balance problems, No memory loss, No numbness/tingling, No paralysis, No problem reported, No see HPI, No vertigo, No weakness Skin: No bleeding, No color change, No itch, No new/changing skin lesions, No problem reported, No rash, No see HPI Objective Vital Signs Date Time Temp Pulse Resp B/P Pulse Ox O2 Delivery O2 Flow Rate FiO2 01/30/17 14:07 90 14 96 Nasal Cannula 3.0 01/30/17 13:10 95 Nasal Cannula 4.0 01/30/17 08:00 95 Nasal Cannula 4.0 01/30/17 07:44 88 14 95 Nasal Cannula 3.0 01/30/17 07:34 36.6 90 20 128/85 91 Nasal Cannula 3.0 01/30/17 04:02 36.8 93 20 127/75 92 Room Air 01/30/17 04:00 Nasal Cannula 4.0 01/30/17 02:19 86 14 87 Room Air 01/29/17 23:59 90 Nasal Cannula 4.0 01/29/17 23:28 37.0 87 20 121/78 90 Room Air 01/29/17 19:40 36.6 98 18 109/69 94 Nasal Cannula 3.0 01/29/17 19:02 102 14 95 Nasal Cannula 4.0 01/29/17 16:00 92 Nasal Cannula 4.0 01/29/17 16:00 92 Nasal Cannula 4.0 01/29/17 15:25 36.7 105 20 102/64 92 Nasal Cannula 4.0 Physical Exam General Appearance: + cachetic, + thin, + pertinent finding (frail, look much older than his age, on nasal cannula oxygen, uncomfortable) Eyes: normal inspection, PERRL ENT: normal ENT inspection, hearing grossly normal Neck: supple, no adenopathy Respiratory/Chest: chest non-tender, + decreased breath sounds, + pertinent finding (mild labored breathing) Cardiovascular: regular rate, rhythm, no edema, no gallop Abdomen: normal bowel sounds, non tender, soft, no organomegaly Extremities: normal range of motion, non-tender, normal inspection, no pedal edema, no calf tenderness 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8 SECONDS Partial Thromboplastin Ratio 1.1 Sodium Level 139 mmol/L Potassium Level 4.0 mmol/L Chloride Level 100 mmol/L Carbon Dioxide Level 32 mmol/L Anion Gap 7.0 mmol/L Blood Urea Nitrogen 17 mg/dl Creatinine 1.10 mg/dl 0.97 mg/dl Est Creatinine Clear Calc Drug Dose 70.6 ml/min 80.0 ml/min Estimated GFR () 83.5 97.3 Estimated GFR (Non- 72.1 83.9 BUN/Creatinine Ratio 15.3 Random Glucose 115 mg/dl Calcium Level 9.3 mg/dl Total Bilirubin 0.6 mg/dl Aspartate Amino Transf (AST/SGOT) 28 U/L Alanine Aminotransferase (ALT/SGPT) 23 U/L Alkaline Phosphatase 164 U/L Total Protein 7.5 gm/dl Albumin 2.9 gm/dl Globulin 4.6 gm/dl Albumin/Globulin Ratio 0.6 Assessment and Plan 61-year-old gentleman with lung mass being admitted for acute on chronic respiratory insufficiency: Per report patient has other history of RUL masses and adenopathy, COPD, HTN, anxiety and agoraphobia, chronic hepatitis C, and chronic pain who presented for a direct admission following a bronchoscopy attempt on 01/29, with Dr. Jones. The patient had been scheduled for EBUS/ENB for further work up of CT findings in December 2015 that were concerning for malignancy. The procedures were aborted after the patient began to decompensate and go into respiratory failure. Currently, the patient complains of a 8/10 sharp, pulling pain in his right chest, right neck/jaw and right arm. He also complains of a productive cough with thick, white sputum. He states that he is more short of breath than usual. 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 CT as well as PET are highly suggestive of primary lung carcinoma. Will follow up with pulmonology input Possible lung cancer metastatic system the cervical spine ACOS: very severe COPD and FEV1 of 32%. He is also noted on pulmonary function tests to have significant reversibility both in his FEV1 and FVC. Continue IV steroids and nebulizers. chest paiin, likely from lung cancer to musculoskeletal as well as pleurisy. I will start MS Contin for baseline pain coverage and then narcotic for the patient will pain Colace altered GI and DVT prophylaxis Continued [facility] stay due to: multiple IV medications needed Discharge planning: home
--- NOTE | 2017-01-30 16:34 | Pulmonology Progress Note ---
Pulmonary Progress Note Date of Service Jan 30, 2017. Attending Dr. Jones Subjective Patient notes mild improvement in his SOB/dyspnea but continues to have right facial pain vs. numbness and right shoulder anterior chest pain. Objective the patient is notable uncomfortable with mild tachypnea no signs of accessory muscle us a this time. VS: stable on 3-4Lnc CHEST: RESP: decreased bs right upper anterior hemithorax with right jimmy-thorax rhonchi CARD: S1 S2 RRR with distant HS unable to auscultate for M/R/G Imaging: MRI brain 1. 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 2. No abnormal enhancement within the brain to suggest intracranial metastatic disease. CT thorax 1. There is again noted a large right hilar/perihilar mass which measures 6.5 cm. This results in high- grade stenosis of the right upper lobe bronchus. 2. Progressive right perihilar airspace opacities with progressive interstitial thickening. This likely represents a combination of lymphangitic spread of disease and a postobstructive pneumonitis. 3. Supraclavicular, mediastinal, and right hilar lymphadenopathy is again noted. 4. Emphysema. 5. The right hilar mass/lymphadenopathy results in narrowing of the SVC. Assessment & Plan 61 y/o male admitted with acute on chronic respiratory failure and likely stage IV lung cancer: 1) Dyspnea: Will continue to treat for possible COPD flair and post- obstructive pneumonia at this time as the patient has noted some benefit with his SOB. 2) Lung Mass: We are probably dealing with a primary lung ca. He is still to unstable to undergo bronchoscopy at this time for a definitive biopsy. Attempting to collect sputum for cytology at this time. 3) Pain: Will consult the pain management team and send of for neck CT and right should as they maybe hiding MTX disease. As the patient's Cr. is WNL I will initiate him on Toradol therapy at this time. I'm worried about impending SVC syndrome but no signs on PE at this time. Data Medications: Current Inpatient Medications Medications (Trade) Dose Ordered Sig/Ines Route Start Time Stop Time Status Last Admin Dose Admin Methylprednisolone Sodium Succinate/ Syringe (Solu-Medrol IV/ Syringe) 0.64 ml @ 1.5 mls/min 3XDQ4 IV 01/29/17 16:00 02/28/17 15:59 01/30/17 12:09 1.5 MLS/MIN Dornase Lon[place] (Pulmozyme Inhalation Soln 2.5ml Amp) 2.5 ml BIDR INH 01/29/17 20:00 02/28/17 19:59 01/30/17 07:44 2.5 ML Levalbuterol 1.25 mg 1.25 mg Q4 PRN INH 01/29/17 15:15 02/28/17 15:14 Vancomycin HCl/ Sodium Chloride (Vancomycin Inj/ Nss 250ml) 272 ml @ 125 mls/hr Q12H IV 01/30/17 06:00 02/06/17 05:59 01/30/17 05:25 125 MLS/HR Acetaminophen/ Codeine Phosphate (Tylenol w/ Codeine #3 Tab) 1 tab Q6 PRN PO 01/29/17 15:15 02/28/17 15:14 01/30/17 08:35 1 TAB Lorazepam (Ativan Tab) 1 mg Q6 PRN PO 01/29/17 15:15 02/28/17 15:14 Future Hold Ipratropium [place] (Atrovent 0.02% 0.5MG/2.5ML Neb) 0.5 mg Q6R INH 01/29/17 21:00 02/28/17 20:59 01/30/17 14:07 0.5 MG Levalbuterol (Xopenex 1.25MG/ 0.5ML Neb) 1.25 mg Q6R INH 01/29/17 21:00 02/28/17 20:59 01/30/17 14:07 1.25 MG Vancomycin HCl (Consult) 1 ea UD PRN N/A 01/29/17 15:45 02/28/17 15:44 Piperacillin Sod/ Tazobactam Sod (Consult) 1 ea UD PRN N/A 01/29/17 15:45 02/28/17 15:44 Alprazolam (Xanax Tab) 1 mg QID PO 01/29/17 21:00 02/28/17 20:59 01/30/17 14:55 1 MG Duloxetine HCl (Cymbalta Cap) 60 mg QAM PO 01/30/17 09:00 03/01/17 08:59 01/30/17 08:32 60 MG Fentanyl (Duragesic Patch) 50 mcg Q72H TD 01/29/17 18:00 02/12/17 17:59 01/29/17 17:36 50 MCG Nitroglycerin (Nitrostat Tab) 0.4 mg PRN PRN UT 01/29/17 16:15 02/28/17 16:14 Trazodone HCl (Desyrel Tab) 200 mg HS PO 01/29/17 21:00 02/28/17 20:59 01/29/17 20:46 200 MG Donepezil HCl (Aricept Tab) 10 mg QAM PO 01/30/17 09:00 03/01/17 08:59 01/30/17 08:33 10 MG Isosorbide Dinitrate (Isordil Tab) 30 mg QAM PO 01/30/17 09:00 03/01/17 08:59 01/30/17 08:33 30 MG Miscellaneous (Fentanyl Patch Remove & Waste) 1 ea Q3D@1759 N/A 01/29/17 17:59 02/28/17 17:58 Miscellaneous Information (Check Fentanyl Patch Placement) 1 ea QS N/A 01/30/17 00:00 03/01/17 00:00 01/30/17 08:00 1 EA Heparin Sodium (Porcine) (Heparin Sq 5000 Unit/0.5ml) 5,000 unit Q12 SQ 01/29/17 21:00 02/28/17 20:59 01/30/17 09:28 5,000 UNIT Acetaminophen (Tylenol Tab) 650 mg Q4H PRN PO 01/29/17 16:15 02/28/17 16:14 Al Hydrox/Mg Hydrox/Simethicone (Maalox Max Susp) 15 ml Q4H PRN PO 01/29/17 16:15 02/28/17 16:14 Magnesium Hydroxide (Milk Of Magnesia Susp) 30 ml Q12H PRN PO 01/29/17 16:15 02/28/17 16:14 Ondansetron HCl (Zofran Inj) 4 mg Q6H PRN IV 01/29/17 16:15 02/28/17 16:14 Polyethylene (Miralax Powder Packet) 17 gm DAILY PRN PO 01/29/17 16:15 02/28/17 16:14 Nicotine (Nicoderm Cq 21MG Patch) 1 patch QAM TD 01/30/17 09:00 03/01/17 08:59 01/30/17 08:31 1 PATCH Miscellaneous 1 ea 1 ea HS N/A 01/29/17 21:00 02/28/17 20:59 Piperacillin Sod/ Tazobactam Sod/ Dextrose (Zosyn Iv/D5 100ml) 115 ml @ 28.75 mls/ hr Q8H IV 01/30/17 00:00 02/06/17 00:00 01/30/17 09:27 28.75 MLS/HR Acetaminophen/ Codeine Phosphate (Tylenol w/ Codeine #3 Tab) 2 tab Q6H PRN PO 01/30/17 10:45 03/01/17 10:44 01/30/17 12:10 2 TAB Trazodone HCl (Desyrel Tab) 200 mg HS PO 01/30/17 21:00 03/01/17 20:59 UNV Docusate Sodium (coLACE CAP) 100 mg BID PO 01/30/17 21:00 03/01/17 20:59 UNV Morphine Sulfate (Ms Contin Tab) 60 mg Q12H PO 01/30/17 15:00 02/13/17 14:59 UNV I & O: 24-Hour Column 01/30/17 07:59 Intake Total 947 ml Output Total 425 ml Balance 522 ml Vital Signs: Date Time Temp Pulse Resp B/P Pulse Ox O2 Delivery O2 Flow Rate FiO2 01/30/17 15:16 36.4 92 18 113/66 91 Nasal Cannula 3.0 01/30/17 14:07 90 14 96 Nasal Cannula 3.0 01/30/17 13:10 95 Nasal Cannula 4.0 01/30/17 08:00 95 Nasal Cannula 4.0 01/30/17 07:44 88 14 95 Nasal Cannula 3.0 01/30/17 07:34 36.6 90 20 128/85 91 Nasal Cannula 3.0 01/30/17 04:02 36.8 93 20 127/75 92 Room Air 01/30/17 04:00 Nasal Cannula 4.0 01/30/17 02:19 86 14 87 Room Air 01/29/17 23:59 90 Nasal Cannula 4.0 01/29/17 23:28 37.0 87 20 121/78 90 Room Air 01/29/17 19:40 36.6 98 18 109/69 94 Nasal Cannula 3.0 01/29/17 19:02 102 14 95 Nasal Cannula 4.0 Laboratory Results: Last 24 Hours Test 01/29/17 16:50 01/30/17 07:32 White Blood Count 9.36 K/uL Red Blood Count 4.11 M/uL Hemoglobin 13.3 g/dL Hematocrit 38.6 % Mean Corpuscular Volume 93.9 fL Mean Corpuscular Hemoglobin 32.4 pg Mean Corpuscular Hemoglobin Concent 34.5 g/dl RDW Standard Deviation 48.3 fL RDW Coefficient of Variation 14.0 % Platelet Count 91 K/uL Mean Platelet Volume 8.7 fL Platelet Estimate DECREASED Prothrombin Time 12.0 SECONDS Prothromb Time International Ratio 1.1 Activated Partial Thromboplast Time 27.8 SECONDS Partial Thromboplastin Ratio 1.1 Sodium Level 139 mmol/L Potassium Level 4.0 mmol/L Chloride Level 100 mmol/L Carbon Dioxide Level 32 mmol/L Anion Gap 7.0 mmol/L Blood Urea Nitrogen 17 mg/dl Creatinine 1.10 mg/dl 0.97 mg/dl Est Creatinine Clear Calc Drug Dose 70.6 ml/min 80.0 ml/min Estimated GFR () 83.5 97.3 Estimated GFR (Non- 72.1 83.9 BUN/Creatinine Ratio 15.3 Random Glucose 115 mg/dl Calcium Level 9.3 mg/dl Total Bilirubin 0.6 mg/dl Aspartate Amino Transf (AST/SGOT) 28 U/L Alanine Aminotransferase (ALT/SGPT) 23 U/L Alkaline Phosphatase 164 U/L Total Protein 7.5 gm/dl Albumin 2.9 gm/dl Globulin 4.6 gm/dl Albumin/Globulin Ratio 0.6
[2017-01-30] MEDS ORDERED: KETOROLAC TROMETHAMINE 15 MG/ML VIAL ONE (16:48)
[2017-01-30] MEDS: MoRPHine SULFATE CR 15 MG TAB (MS CONTIN) PO SCH (16:50)
[2017-01-30] MEDS: TRAZODONE HCL 100 MG TAB PO SCH (20:57)
[2017-01-30] MEDS ORDERED: TRAZODONE HCL 100 MG TAB PO SCH (21:00)
[2017-01-30] MEDS: DOCUSATE SODIUM 100 MG CAP PO SCH (21:44)
[2017-01-30] MEDS: KETOROLAC TROMETHAMINE 15 MG/ML VIAL IV PRN (23:55)
[2017-01-31] VITALS (13 sets, daily range): BP systolic 120–145; BP diastolic 58–85; PULSE 77–97; TEMP 36.3–36.9; O2SAT 92–96
[2017-01-31] MEDS: FENTANYL PATCH REMOVE & WASTE SCH (00:04)
[2017-01-31] MEDS: FENTANYL 50 MCG/HR TDSY TD SCH (00:07)
[2017-01-31] MEDS: IPRATROPIUM BROMIDE NEB SOLN 0.02% 2.5 ML VIAL INH SCH ×4 (02:16→20:09)
[2017-01-31] MEDS: LEVALBUTEROL 1.25MG/0.5ML NEB INH SCH ×4 (02:16→20:09)
[2017-01-31] MEDS: ACETAMINOPHEN/CODEINE 300/30MG TAB PO PRN ×2 (04:11→13:04)
[2017-01-31] MEDS ORDERED: VANCOMYCIN TROUGH SCH (05:30)
[2017-01-31] MEDS: VANCOMYCIN INJ 1,100 MG in SODIUM CHLORIDE 0.9% 250ML 250 ML IV SCH ×2 (06:08→17:12)
[2017-01-31] MEDS: MoRPHine SULFATE CR 15 MG TAB (MS CONTIN) PO SCH ×2 (06:38→20:01)
[2017-01-31] MEDS: KETOROLAC TROMETHAMINE 15 MG/ML VIAL IV PRN ×2 (07:36→14:21)
[2017-01-31] MEDS: METHYLPREDNISOLONE IV 40 MG in SYRINGE 0 ML IV SCH ×3 (07:39→15:26)
[2017-01-31] MEDS: CHECK FENTANYL PATCH PLACEMENT SCH ×2 (07:39→15:28)
[2017-01-31] MEDS: DONEPEZIL HCL 10 MG TAB PO SCH (07:40)
[2017-01-31] MEDS: ISOSORBIDE DINITRATE 10 MG TAB PO SCH (07:40)
[2017-01-31] MEDS: NICOTINE 21 MG/24 HR TDSY TD SCH (07:41)
[2017-01-31] MEDS: DOCUSATE SODIUM 100 MG CAP PO SCH ×2 (07:41→21:21)
[2017-01-31] MEDS: ALPRAZOLAM 0.5 MG TAB PO SCH ×4 (07:41→21:20)
[2017-01-31] MEDS: DULOXETINE HCL 60 MG CAP PO SCH (07:41)
[2017-01-31] MEDS: PIPERACILL/TAZOBAC IV 3.375 GM in DEXTROSE 5% 100ML IV SCH ×2 (08:29→15:31)
[2017-01-31] MEDS: HEPARIN SOD 5000 UNIT/0.5 ML CARP SQ SCH ×2 (08:30→21:24)
--- NOTE | 2017-01-31 12:07 | Pulmonology Progress Note ---
Pulmonary Progress Note Date of Service Jan 31, 2017. Attending Dr. Jones Subjective Patient notes mild improvement in his respiratory and pain status Objective Sleeping comfortably when I arrived and easily awoke. During our conversation the patient showed no signs of respiratory insufficiency. VS: stable on 4Lnc CHEST: RESP: decreased bs right upper anterior hemithorax with right jimmy-thorax rhonchi CARD: S1 S2 RRR with distant HS unable to auscultate for M/R/G Imaging: MRI brain 1. 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 2. No abnormal enhancement within the brain to suggest intracranial metastatic disease. CT thorax 1. There is again noted a large right hilar/perihilar mass which measures 6.5 cm. This results in high- grade stenosis of the right upper lobe bronchus. 2. Progressive right perihilar airspace opacities with progressive interstitial thickening. This likely represents a combination of lymphangitic spread of disease and a postobstructive pneumonitis. 3. Supraclavicular, mediastinal, and right hilar lymphadenopathy is again noted. 4. Emphysema. 5. The right hilar mass/lymphadenopathy results in narrowing of the SVC. Assessment & Plan 61 y/o male admitted with acute on chronic respiratory failure and likely stage IV lung cancer: 1) Dyspnea: Continue ABX and steroid as patient is slowly improving. Possible COPD flair and post-obstructive pneumonia. 2) Lung Mass: We are probably dealing with a primary lung ca. The patient would still like to under go bronchoscopy with bx at this time. He is no ready but will be evaluated day to day. The bronchoscopy would be easier if done as an inpatient as the patient and his don't drive. 3) Pain: The patient's pain is better controlled today and the pain-management consult is pending. I'm still worried about impending SVC syndrome but no clinical or radiographic signs at this time. 4) Code Status: The patient would like to be placed as a Level 3 (no mechanical ventilation) This will most likely have to be held at the time of the bronchoscopy Data Medications: Current Inpatient Medications Medications (Trade) Dose Ordered Sig/Ines Route Start Time Stop Time Status Last Admin Dose Admin Methylprednisolone Sodium Succinate/ Syringe (Solu-Medrol IV/ Syringe) 0.64 ml @ 1.5 mls/min 3XDQ4 IV 01/29/17 16:00 02/28/17 15:59 01/31/17 07:39 1.5 MLS/MIN Dornase [place] (Pulmozyme Inhalation Soln 2.5ml Amp) 2.5 ml BIDR INH 01/29/17 20:00 02/28/17 19:59 01/30/17 19:47 2.5 ML Levalbuterol 1.25 mg 1.25 mg Q4 PRN INH 01/29/17 15:15 02/28/17 15:14 Vancomycin HCl/ Sodium Chloride (Vancomycin Inj/ Nss 250ml) 272 ml @ 125 mls/hr Q12H IV 01/30/17 06:00 02/06/17 05:59 01/31/17 06:08 125 MLS/HR Acetaminophen/ Codeine Phosphate (Tylenol w/ Codeine #3 Tab) 1 tab Q6 PRN PO 01/29/17 15:15 02/28/17 15:14 01/30/17 08:35 1 TAB Lorazepam (Ativan Tab) 1 mg Q6 PRN PO 01/29/17 15:15 02/28/17 15:14 Future Hold Ipratropium [place] (Atrovent 0.02% 0.5MG/2.5ML Neb) 0.5 mg Q6R INH 01/29/17 21:00 02/28/17 20:59 01/31/17 07:13 0.5 MG Levalbuterol (Xopenex 1.25MG/ 0.5ML Neb) 1.25 mg Q6R INH 01/29/17 21:00 02/28/17 20:59 01/31/17 07:13 1.25 MG Vancomycin HCl (Consult) 1 ea UD PRN N/A 01/29/17 15:45 02/28/17 15:44 Piperacillin Sod/ Tazobactam Sod (Consult) 1 ea UD PRN N/A 01/29/17 15:45 02/28/17 15:44 Alprazolam (Xanax Tab) 1 mg QID PO 01/29/17 21:00 02/28/17 20:59 01/31/17 07:41 1 MG Duloxetine HCl (Cymbalta Cap) 60 mg QAM PO 01/30/17 09:00 03/01/17 08:59 01/31/17 07:41 60 MG Fentanyl (Duragesic Patch) 50 mcg Q72H TD 01/29/17 18:00 02/12/17 17:59 01/31/17 00:07 50 MCG Nitroglycerin (Nitrostat Tab) 0.4 mg PRN PRN UT 01/29/17 16:15 02/28/17 16:14 Trazodone HCl (Desyrel Tab) 200 mg HS PO 01/29/17 21:00 02/28/17 20:59 01/30/17 20:57 200 MG Donepezil HCl (Aricept Tab) 10 mg QAM PO 01/30/17 09:00 03/01/17 08:59 01/31/17 07:40 10 MG Isosorbide Dinitrate (Isordil Tab) 30 mg QAM PO 01/30/17 09:00 03/01/17 08:59 01/31/17 07:40 30 MG Miscellaneous (Fentanyl Patch Remove & Waste) 1 ea Q3D@1759 N/A 01/29/17 17:59 02/28/17 17:58 01/31/17 00:04 1 EA Miscellaneous Information (Check Fentanyl Patch Placement) 1 ea QS N/A 01/30/17 00:00 03/01/17 00:00 01/31/17 07:39 1 EA Heparin Sodium (Porcine) (Heparin Sq 5000 Unit/0.5ml) 5,000 unit Q12 SQ 01/29/17 21:00 02/28/17 20:59 01/31/17 08:30 5,000 UNIT Acetaminophen (Tylenol Tab) 650 mg Q4H PRN PO 01/29/17 16:15 02/28/17 16:14 Al Hydrox/Mg Hydrox/Simethicone (Maalox Max Susp) 15 ml Q4H PRN PO 01/29/17 16:15 02/28/17 16:14 Magnesium Hydroxide (Milk Of Magnesia Susp) 30 ml Q12H PRN PO 01/29/17 16:15 02/28/17 16:14 Ondansetron HCl (Zofran Inj) 4 mg Q6H PRN IV 01/29/17 16:15 02/28/17 16:14 Polyethylene (Miralax Powder Packet) 17 gm DAILY PRN PO 01/29/17 16:15 02/28/17 16:14 Nicotine (Nicoderm Cq 21MG Patch) 1 patch QAM TD 01/30/17 09:00 03/01/17 08:59 01/31/17 07:41 1 PATCH Miscellaneous 1 ea 1 ea HS N/A 01/29/17 21:00 02/28/17 20:59 Piperacillin Sod/ Tazobactam Sod/ Dextrose (Zosyn Iv/D5 100ml) 115 ml @ 28.75 mls/ hr Q8H IV 01/30/17 00:00 02/06/17 00:00 01/31/17 08:29 28.75 MLS/HR Acetaminophen/ Codeine Phosphate (Tylenol w/ Codeine #3 Tab) 2 tab Q6H PRN PO 01/30/17 10:45 03/01/17 10:44 01/31/17 04:11 2 TAB Docusate Sodium (coLACE CAP) 100 mg BID PO 01/30/17 21:00 03/01/17 20:59 01/31/17 07:41 100 MG Morphine Sulfate (Oramorph Sr Tab) 15 mg Q12@0700,1900 PO 01/30/17 16:45 02/13/17 16:44 01/31/17 06:38 15 MG Ketorolac Tromethamine (Toradol Inj) 15 mg Q6H PRN IV 01/30/17 16:45 02/02/17 16:44 01/31/17 07:36 15 MG I & O: 24-Hour Column 01/31/17 08:00 Intake Total 1569 ml Output Total 700 ml Balance 869 ml Vital Signs: Date Time Temp Pulse Resp B/P Pulse Ox O2 Delivery O2 Flow Rate FiO2 01/31/17 08:00 96 Nasal Cannula 4.0 01/31/17 07:32 36.4 88 18 125/70 93 Nasal Cannula 4.0 01/31/17 07:13 77 16 95 Room Air 01/31/17 04:00 36.4 89 20 120/58 94 Nasal Cannula 4.0 01/31/17 04:00 Nasal Cannula 4.0 01/31/17 02:16 89 16 95 Room Air 01/31/17 00:00 Nasal Cannula 4.0 01/30/17 23:42 36.5 91 20 120/70 92 Room Air 01/30/17 20:00 Nasal Cannula 4.0 01/30/17 19:47 90 14 94 Nasal Cannula 3.0 01/30/17 19:33 36.4 94 20 151/85 92 Nasal Cannula 3.0 01/30/17 16:00 94 Nasal Cannula 4.0 01/30/17 15:16 36.4 92 18 113/66 91 Nasal Cannula 3.0 01/30/17 14:07 90 14 96 Nasal Cannula 3.0 01/30/17 13:10 95 Nasal Cannula 4.0 Laboratory Results: Last 24 Hours Test 01/31/17 05:30 Creatinine 1.00 mg/dl Est Creatinine Clear Calc Drug Dose 77.6 ml/min Estimated GFR () 93.7 Estimated GFR (Non- 80.9 Vancomycin Level Trough 11.9 mcg/ml
--- NOTE | 2017-01-31 13:55 | Pharmacy Progress Note ---
Pharmacy Antibiotic Prog Note Date of Service Jan 31, 2017. Subjective The patient is currently receiving vancomycin 1100 mg iv q 12 hrs and zosyn 3.375 gm iv q 8 hrs for possible PNA. The patient is currently on day # 3 of IV therapy. Objective Height (Feet): 5 Height (Inches): 9.00 Weight (Kilograms): 70.900 Levels: Item Value Date Time Vancomycin Level Trough 11.9 mcg/ml 01/31/17 0530 Lab Results (24hrs): Laboratory Tests Test 01/31/17 05:30 Creatinine 1.00 mg/dl Assessment & Plan Patient on vancomycin and zosyn for possible pneumonia. Vancomycin: * Trough level this am came back ~12 mcg/ml (prior to the 3rd MD), estimated that true trough at steady state closer to ~15 mcg/ml (goal 15-20 mcg/ml) * Will continue with current regimen for now; will repeat trough prior to the 1800 dose on 02/01 to ensure therapeutic * Ordered a MRSA nasal swab to help guide therapy Zosyn: * 3.375 gm iv q 8 hrs (appropriate for CrCl >20 ml/min) ; no change Pharmacy will continue to follow and will adjust dose/frequency as necessary. Thank you
[2017-01-31] MEDS ORDERED: MoRPHine SULFATE 4 MG/ML 1 ML CARP\\VIAL ONE (14:38)
[2017-01-31] MEDS ORDERED: NURSING VERBAL MED ORDER ONE (14:45)
--- NOTE | 2017-01-31 17:03 | Progress Note ---
Subjective Date of Service: Jan 31, 2017. Subjective Pt evaluation today including: conversation w/ patient, conversation w/ family , physical exam, chart review, lab review, review of studies, review of inpatient medication list Report pain little better controlled however still make him more uncomfortable, decreased appetite, weight lost for several months, Review of Systems Constitutional: + fatigue, + weakness, No chills, No fever, No problem reported , No sweats, No weight loss Eyes: No diplopia, No discharge, No eye pain, No redness, No worsening of vision ENT: No dental problems, No hearing loss, No nasal symptoms, No sore throat, No tinnitus, No trouble swallowing, No unusual epistaxis Respiratory: No cough, No dyspnea at rest, No dyspnea on exertion, No hemoptysis, No shortness of breath, No sputum, No wheezing Cardiac: + chest pain (right chest pain radiation to the neck), No PND, No claudication, No edema, No orthopnea, No palpitations Abdomen: No constipation, No diarrhea, No nausea, No pain, No vomiting Musculoskeletal: No calf pain, No joint pain, No muscle pain, No swelling Male : No dysuria, No hematuria, No incontinence, No nocturia more than once/ night, No slowing stream, No urinary frequency Neurologic: No balance problems, No memory loss, No numbness/tingling, No paralysis, No vertigo, No weakness Psychiatric: No anhedonism, No anxiety, No depression symptoms, No insomnia, No substance abuse Heme: No abnormal bleeding/bruising, No clotting problems, No night sweats, No swollen lymph nodes Endo: No excessive thirst, No excessive urination, No fatigue Skin: No bleeding, No color change, No itch, No new/changing skin lesions, No rash Objective Vital Signs Date Time Temp Pulse Resp B/P Pulse Ox O2 Delivery O2 Flow Rate FiO2 01/31/17 16:00 96 Nasal Cannula 4.0 01/31/17 15:43 36.4 93 20 131/75 92 Nasal Cannula 3.0 01/31/17 14:34 97 16 96 Nasal Cannula 3.5 01/31/17 12:03 36.3 90 18 130/73 94 Nasal Cannula 4.0 01/31/17 12:00 96 Nasal Cannula 4.0 01/31/17 08:00 96 Nasal Cannula 4.0 01/31/17 07:32 36.4 88 18 125/70 93 Nasal Cannula 4.0 01/31/17 07:13 77 16 95 Room Air 01/31/17 04:00 36.4 89 20 120/58 94 Nasal Cannula 4.0 01/31/17 04:00 Nasal Cannula 4.0 01/31/17 02:16 89 16 95 Room Air 01/31/17 00:00 Nasal Cannula 4.0 01/30/17 23:42 36.5 91 20 120/70 92 Room Air 01/30/17 20:00 Nasal Cannula 4.0 01/30/17 19:47 90 14 94 Nasal Cannula 3.0 01/30/17 19:33 36.4 94 20 151/85 92 Nasal Cannula 3.0 Physical Exam General Appearance: WD/WN, no apparent distress, + cachetic, + thin, + pertinent finding (frail and uncomfortable) Eyes: normal inspection, PERRL, EOMI, sclerae normal ENT: normal ENT inspection, hearing grossly normal, pharynx normal Neck: supple, no adenopathy, thyroid normal, no JVD, no carotid bruits, trachea midline Respiratory/Chest: chest non-tender, normal breath sounds, no respiratory distress, no accessory muscle use, + decreased breath sounds Cardiovascular: regular rate, rhythm, no edema, no gallop, no JVD, no murmur Abdomen: normal bowel sounds, non tender, soft, no organomegaly, no pulsatile mass Extremities: normal range of motion, non-tender, normal inspection, no pedal edema, no calf tenderness, normal capillary refill, pelvis stable Neurologic/Psychiatric: unemployment specialist II-XII nml as tested, no motor/sensory deficits, alert, normal mood/affect, oriented x 3 Skin: normal color, warm/dry, no rash Lymphatic: no adenopathy Laboratory Results Last 24 Hours Test 01/31/17 05:30 Creatinine 1.00 mg/dl Est Creatinine Clear Calc Drug Dose 77.6 ml/min Estimated GFR () 93.7 Estimated GFR (Non- 80.9 Vancomycin Level Trough 11.9 mcg/ml Assessment and Plan 61-year-old gentleman with lung mass being admitted for acute on chronic respiratory insufficiency: Per report patient has other history of RUL masses and adenopathy, COPD, HTN, anxiety and agoraphobia, chronic hepatitis C, and chronic pain who presented for a direct admission following a bronchoscopy attempt on 01/29, with Dr. Jones. The patient had been scheduled for EBUS/ENB for further work up of CT findings in December 2015 that were concerning for malignancy. The procedures were aborted after the patient began to decompensate and go into respiratory failure. 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 CT as well as PET are highly suggestive of primary lung carcinoma. Will follow up with pulmonology input, Possible lung cancer metastatic system the cervical spine ACOS: very severe COPD and FEV1 of 32%. He is also noted on pulmonary function tests to have significant reversibility both in his FEV1 and FVC. Continue IV steroids and nebulizers. Colace ordered GI and DVT prophylaxis Poor prognosis Continued [facility] stay due to: multiple IV medications needed Discharge planning: home
[2017-01-31] MEDS: MoRPHine SULFATE 4 MG/ML 1 ML CARP\\VIAL IV PRN ×2 (18:15→22:11)
[2017-01-31] MEDS: DORNASE ALFA (2500U) 2.5MG/2.5ML INH SCH (20:09)
[2017-01-31] MEDS: TRAZODONE HCL 100 MG TAB PO SCH (21:21)
[2017-02-01] VITALS (15 sets, daily range): BP systolic 115–163; BP diastolic 69–103; PULSE 83–98; TEMP 36.3–36.9; O2SAT 92–97
[2017-02-01] MEDS: PIPERACILL/TAZOBAC IV 3.375 GM in DEXTROSE 5% 100ML IV SCH ×4 (00:26→23:34)
[2017-02-01] MEDS: CHECK FENTANYL PATCH PLACEMENT SCH ×3 (00:31→23:35)
[2017-02-01] MEDS: IPRATROPIUM BROMIDE NEB SOLN 0.02% 2.5 ML VIAL INH SCH ×3 (02:00→20:23)
[2017-02-01] MEDS: LEVALBUTEROL 1.25MG/0.5ML NEB INH SCH ×3 (02:00→20:22)
[2017-02-01] MEDS: MoRPHine SULFATE 4 MG/ML 1 ML CARP\\VIAL IV PRN ×4 (02:10→21:12)
[2017-02-01 06:17] LABS: CREATININE 1.1 mg/dl (0.60-1.40)
[2017-02-01] MEDS: VANCOMYCIN INJ 1,100 MG in SODIUM CHLORIDE 0.9% 250ML 250 ML IV SCH ×2 (06:26→17:49)
[2017-02-01] MEDS: MoRPHine SULFATE CR 15 MG TAB (MS CONTIN) PO SCH (07:22)
--- NOTE | 2017-02-01 07:22 | PROGRESS NOTE ---
DATE: 02/01/2017 PULMONARY PROGRESS NOTE SUBJECTIVE: The patient is comfortable this morning stating he is considerably improved. He has not had any hemoptysis. He continues to have right shoulder pain. He is sleeping fairly well. Denies fevers or chills. Right-sided pleuritic chest discomfort has persisted. He states he is considerably improved since the time of admission. He is sleeping comfortably on his right side. Did review the PET scan which shows a 6.5 cm right perihilar mass with multiple areas of metastasis to the bone and lymph nodes, changes consistent with emphysema as well. There is also narrowing of the superior vena cava by the CT scan as well. MEDICATIONS: Noted. PHYSICAL EXAMINATION: VITAL SIGNS: Stable and he is afebrile. Blood pressure 143/88, oxygen saturation 95% on 2 liters. I\T\O 1100 in and 600 out. Weight 70.9 kilograms. HEENT: Unremarkable. NECK: There is right supraclavicular lymph node that is rock hard, easily palpable in the right supraclavicular space medially and slightly anteriorly. No axillary adenopathy is noted. HEART: Regular rate and rhythm. LUNGS: Clear with decreased breath sounds. ABDOMEN: Soft, nontender. EXTREMITIES: He has no cyanosis or edema. No evidence of DVT is noted. LABORATORY DATA: Blood gas on the revealed pH 7.44, pCO2 of 48, pO2 of 123 on 3 liters. His CBC, coagulation profile, and PRP are stable. MRSA DNA surveillance screen is pending, that was done from the nose today. IMAGING DATA: MRI of the brain shows osseous metastasis in the upper cervical spine calvaria and clivus with no parenchymal abnormalities noted. IMPRESSION: 1. Right upper lobe mass is most consistent with metastatic carcinoma. It is rather central with right supraclavicular lymph node. 2. Chronic obstructive pulmonary disease with exacerbation. RECOMMENDATIONS: 1. At this point, I would recommend biopsy of the right supraclavicular lymph node. That can be done at the bedside by pathology, may be able to be done today. That may stage him and secure the diagnosis. 2. Dr. Jones is planning on performing bronchoscopy tomorrow. 3. Consider radiation consultation for the left femoral neck metastasis noted on CT scan to see if that needs to be radiated. 4. Continue on good pain control and I will continue his antibiotics now for his suspected postobstructive pneumonitis. He is on Xopenex 1.25 mg p.r.n. and I think that is probably adequate for him since he is improving. He is also on Atrovent. I believe Dr. Jones could perform the bronchoscopy tomorrow. WILLIAM
[2017-02-01] MEDS: DORNASE ALFA (2500U) 2.5MG/2.5ML INH SCH ×2 (08:00→20:22)
[2017-02-01] MEDS: DULOXETINE HCL 60 MG CAP PO SCH (08:47)
[2017-02-01] MEDS: DOCUSATE SODIUM 100 MG CAP PO SCH ×2 (08:47→21:14)
[2017-02-01] MEDS: NICOTINE 21 MG/24 HR TDSY TD SCH (08:48)
[2017-02-01] MEDS: ISOSORBIDE DINITRATE 10 MG TAB PO SCH (08:48)
[2017-02-01] MEDS: DONEPEZIL HCL 10 MG TAB PO SCH (08:48)
[2017-02-01] MEDS: METHYLPREDNISOLONE IV 40 MG in SYRINGE 0 ML IV SCH ×3 (08:49→17:50)
[2017-02-01] MEDS: HEPARIN SOD 5000 UNIT/0.5 ML CARP SQ SCH ×2 (08:51→21:00)
[2017-02-01] MEDS: ALPRAZOLAM 0.5 MG TAB PO SCH ×4 (08:53→21:11)
[2017-02-01] MEDS ORDERED: FENTANYL PATCH REMOVE & WASTE SCH (09:00)
[2017-02-01] MEDS ORDERED: FENTANYL 75 MCG/HR TDSY TD SCH (09:01)
[2017-02-01] MEDS: HYDROmorphone HCL 2 MG TAB PO PRN ×3 (10:17→21:59)
--- NOTE | 2017-02-01 10:24 | CONSULTATION REPORT ---
DATE OF CONSULTATION: 02/01/2017 INPATIENT CONSULTATION REPORT Plan of care was discussed with Dr. Rowe. CHIEF COMPLAINT: Right-sided anterior chest wall pain extending into the axilla and right upper extremity with history of right upper lobe lung mass and adenopathy. HISTORY OF PRESENT ILLNESS: Mr. Correa is a 61-year-old white male who was admitted for acute on chronic respiratory insufficiency with a past medical history significant for a right upper lobe mass, right hilar mass and significant mediastinal adenopathy which is suspicious for primary lung carcinoma with pending biopsy. The patient has also undergone PET scanning within the past few weeks which revealed scattered osseous structure uptake, highly suspicious for metastatic disease involving the right humeral head, left acromion, right posterior seventh rib, right lateral eighth rib, right iliac crest, right posterior iliac bone and left femoral neck. The patient indicates the pain in the right chest wall is chronic over the past few months in duration, described as aching with episodic sharp shooting pains was travel towards the axilla and the right upper extremity into the mid biceps. He does describe some paresthesias generally in the right upper extremity in a nondermatomal pattern. The patient denies any weaknesses or dropping of objects in the upper extremities. He does describe some generalized weakness sensation. He indicates the pain is a 6/10 at its best and an 8/10 at its worst. He was describing pain into the right neck and hemifacial location with paresthesias as well, which has improved over the past 24 hours. He denies any significant axial neck pain or a true radicular pattern to his symptomatic complaints. 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 He denies any exacerbating activities with regards to his pain. He reports full range of motion of the upper extremities without limitations. He denies headache complaints. He is finding his current pain medications to be marginal at pain control without side effects. The patient was initiated on fentanyl in the outpatient setting a few weeks prior to this admission. The patient continues to have difficulties with cough and some shortness of breath and sputum production. He denies fevers, chills or night sweats. PAST MEDICAL HISTORY: 1. COPD. 2. Right perihilar/right upper lung mass, per CT. 3. Bony metastatic disease per PET: 4. Hypertension. 5. Anxiety. 6. Agoraphobia with panic attacks. 7. Chronic hepatitis C. 8. Tobacco abuse disorder. 9. History of head trauma. 10. CAD. 11. Lumbar intervertebral of degenerative disk disorder. PAST SURGICAL HISTORY: Extensive laceration repair, right upper extremity - forearm. SOCIAL HISTORY: The patient is currently living with significant other. He has a [id number] history of smoking, quitting within the past few months. He denies alcohol or illicit drug use. FAMILY HISTORY: 1. Cancer - unknown type. 2. Diabetes mellitus. 3. Hypertension. 4. Lung disease. 5. MN. 6. Stroke. ALLERGIES: No known drug allergies. CURRENT MEDICATIONS: Reviewed extensively in EMR - refer for current listing. REVIEW OF SYSTEMS: The patient denies complaints related to cardiac, pulmonary, GI, , endocrine, neurologic, hepatic, renal, ENT, dermatologic, musculoskeletal as described above in the HPI. PHYSICAL EXAMINATION: VITAL SIGNS: Temperature 36.5 degree Celsius, pulse 84, respirations 18, BP 137/88, pulse oximetry 97% on O2 via nasal cannula at 2 liters. GENERAL: Mr. Correa is sitting up upon entering the room in no obvious acute distress. His speech and thought process are appropriate. His cognition appeared to be intact. He was somewhat sedate, but questions were easily answered. HEAD: Normocephalic and atraumatic. NECK: Full range of motion without limitation. Spurling maneuver is negative bilaterally. He is nontender over the midline to palpation and percussion. He is nontender in the paravertebral musculature or palpation over the facet joints. The patient appears to have a right-sided supraclavicular adenopathy measuring approximately 1 cm which is mobile. CHEST: The patient is tender over the right anterior and lateral chest wall to palpation. He is tender with AP as well as lateral compression on the right chest wall region. He is tender in axillary region to palpation, but no appreciable adenopathy. He has no focal tenderness over the right of the intercostal space. RIGHT UPPER EXTREMITY: The patient is generally tender over the deltoid and proximal humeral location. He has full range of motion without limitation of the shoulder. Strength testing was 5/5 and equal of the upper extremities: Sensation was intact without deficits. Vilchis sign negative bilaterally. Capillary refill was 1-2 seconds. Pulses were intact distally. ABDOMEN: Soft and nondistended. LUMBAR SPINE: Loss of lordosis. He is generally tender over the lumbosacral region which is nonfocal over the midline, facet joints or SI joints. LOWER EXTREMITIES: Strength testing was 5/5 with dorsi and plantar flexion and hip flexion/extension maneuvering. Sensation was intact without deficits. No evidence of edema, erythema or skin breakdown. NEUROLOGIC: Cranial nerves grossly intact. Ambulatory function was not witnessed. IMAGIN. Brain MRI dated 01/30/2017 reveal osseous metastatic lesions seen within the calvarium, clivus and upper cervical spine. No abnormal enhancement within the brain to suggest intracranial metastatic disease. 2. Chest CT dated 01/30/2017 revealed large right hilar/perihilar mass which measures 6.5 cm. This resulted high grade stenosis of the right upper lobe bronchus. Progressive right perihilar airspace opacities with progressive interstitial thickening. This likely represents a combination of lymphangitic spread of the disease and a postobstructive pneumonitis. Supraclavicular, mediastinal and right hilar lymphadenopathy is noted. Emphysema. Right hilar mass/lymphadenopathy results in narrowing of the SVC. 3. Chest x-ray dated 01/29/2017 revealed advanced emphysema with a large right perihilar/upper lobe lung mass. There is an increasing airspace consolidation throughout the right upper lobe. This likely represents a postobstructive pneumonitis with probable associated lymphangitic spread of tumor. The left lung appears clear. 4. PET CT dated 01/20/2017 revealed multiple enlarged and FDG avid lymph nodes throughout the mediastinum and extending into the right hilum consistent with malignancy. This favors her primary bronchogenic malignancy. There is also bilateral FDG avid lower cervical and supraclavicular adenopathy. Right perihilar FDG avid opacities with both peribronchial and lymphangitic spread disease. This could also be due to a combination of superimposed postobstructive pneumonitis. There are few right perihilar FDG avid nodules and FDG avid pleural nodularity abutting the right major fissure. A few scattered foci of FDG uptake within the osseous structures as described above without definitive corresponding abnormality by CT. This is highly suspicious for metastatic disease. ASSESSMENT: 1. Chronic right chest wall, shoulder, and upper extremity pain with history of right lung tumor and findings of metastatic disease per imaging, highly suspicious for lung carcinoma. 2. Chronic obstructive pulmonary disease. 3. Anxiety. 4. History of agoraphobia with panic attacks. TREATMENT AND RECOMMENDATIONS: 1. Will recommend discontinuation of extended release morphine. 2. Will convert his morphine utilized within the past 24 hours to Fentanyl. Fentanyl will adjust from 50 to 75 mcg q. 72 hours. 3. Initiate hydromorphone 2 mg q. 3 hours on a p.r.n. basis for breakthrough pain. Will adjust pending response. He may reserve use of IV morphine for breakthrough pain not well controlled with oral hydromorphone. 4. Consider addition of anti-neuropathic such as gabapentin, but will assess response to adjustment of opiates within the next 24 hours due to his polypharmacy and concerns over sedative effects. 5. Will continue to follow during this hospitalization. Thank you for the consultation on Mr. Correa. WILLIAM
--- NOTE | 2017-02-01 13:02 | Progress Note ---
Subjective Date of Service: February 01, 2017. Subjective Pt evaluation today including: conversation w/ patient, physical exam, chart review, lab review, review of studies, review of inpatient medication list Reports worsening pain, currently 7/10 across whole chest and worse with breathing Review of Systems Constitutional: No chills, No fever Respiratory: + cough, + shortness of breath, No sputum, No wheezing Cardiac: No chest pain, No orthopnea Abdomen: No nausea, No pain, No vomiting Musculoskeletal: + joint pain, + muscle pain Male : No dysuria, No urinary frequency Psychiatric: No anhedonism, No depression symptoms Objective Vital Signs Date Time Temp Pulse Resp B/P Pulse Ox O2 Delivery O2 Flow Rate FiO2 02/01/17 11:42 36.7 90 18 115/69 96 3.0 02/01/17 08:00 96 Nasal Cannula 4.0 02/01/17 07:26 36.5 84 18 137/88 97 2.0 02/01/17 05:56 90 20 143/88 93 02/01/17 04:30 36.5 92 20 139/84 95 2.0 02/01/17 04:00 Nasal Cannula 3.0 02/01/17 02:00 91 16 92 Nasal Cannula 3.0 02/01/17 00:00 Nasal Cannula 3.0 01/31/17 23:47 36.5 89 20 129/79 94 3.0 01/31/17 20:10 93 16 96 Nasal Cannula 3.0 01/31/17 20:00 Nasal Cannula 4.0 01/31/17 19:30 36.9 93 20 145/85 93 3.0 01/31/17 16:00 96 Nasal Cannula 4.0 01/31/17 15:43 36.4 93 20 131/75 92 Nasal Cannula 3.0 01/31/17 14:34 97 16 96 Nasal Cannula 3.5 Physical Exam General Appearance: WD/WN, + mild distress Neck: supple, no adenopathy Respiratory/Chest: + decreased breath sounds, + wheezing Cardiovascular: no gallop, no JVD Abdomen: non tender, soft Neurologic/Psychiatric: alert, oriented x 3 Laboratory Results Last 24 Hours Test 02/01/17 05:33 Creatinine 1.10 mg/dl Est Creatinine Clear Calc Drug Dose 70.6 ml/min Estimated GFR () 83.5 Estimated GFR (Non- 72.1 Assessment and Plan 61-year-old gentleman with lung mass being admitted for acute on chronic respiratory insufficiency: Per report patient has other history of RUL masses and adenopathy, COPD, HTN, anxiety and agoraphobia, chronic hepatitis C, and chronic pain who presented for a direct admission following a bronchoscopy attempt on 01/29, with Dr. Jones. The patient had been scheduled for EBUS/ENB for further work up of CT findings in December 2015 that were concerning for malignancy. The procedures were aborted after the patient began to decompensate and go into respiratory failure. Then he was admitted to the hospital for pain control, treatment for the pneumonia, and further evaluation for the possible cancer disease Right chest wall pain and right shoulder pain Likely consistent with metastatic cancer disease Has started MS Contin for baseline pain coverage and then narcotic she's morphine IV for the breakthrough pain Consulted pain management, cont fentanyl lung mass and possible postobstructive pneumonia: Cont zosyn and vancomycin Pulm consulted Agreeable for bronch likely 02/02 CT as well as PET are highly suggestive of primary lung carcinoma. Rad onc consulted for femoral neck mets ACOS: very severe COPD and FEV1 of 32%. He is also noted on pulmonary function tests to have significant reversibility both in his FEV1 and FVC. Continue IV steroids and nebulizers. Colace ordered GI and DVT prophylaxis Continued [facility] stay due to: multiple IV medications needed Discharge planning: home
[2017-02-01] MEDS ORDERED: NURSING DECISION MEDICATION ORDER SCH (16:30)
[2017-02-01] MEDS ORDERED: COUGH DROP (SUGAR FREE) LOZ 24 LOZ/1 BOX PO PRN (16:45)
--- NOTE | 2017-02-01 16:53 | Radiation Oncology Consult ---
Radiation Oncology Consult Date / Reason February 01, 2017. Physicians Radiation Oncologist: Dr. Anne Stephens Other Providers: Dr. Acosta - Hospitalist Dr. Jones, Dr. Wiggins - Pulmonary Diagnosis (1) Pulmonary mass Permanent Comment: Probable lung cancer Last Edited By: Anne Stephens on February 16:40 History of Present Illness Mr. Correa is a 61-year-old gentleman who recently presented with right-sided chest wall pain and discomfort as well as a 15 pound weight loss over the last several months. The patient also complained of some dysphagia but denied any hemoptysis. The patient did have a scan on 12/27/2016 which did show a mediastinal mass (outside report unavailable). The patient did subsequently have a PET/CT scan on 01/20/2017 which revealed: "IMPRESSION: 1. Multiple enlarged and FDG avid lymph nodes throughout the mediastinum and extending into the right hilum consistent with malignancy. This favors a primary bronchogenic malignancy. There is also bilateral FDG avid lower cervical and supraclavicular lymphadenopathy. 2. Right perihilar FDG avid opacities with both peribronchial and lymphangitic spread of disease. This could also be due to a combination of superimposed post obstructive pneumonitis. There are few right perihilar FDG avid nodules and FDG avid pleural nodularity abutting the right major fissure. 3. A few scattered foci of FDG uptake within the osseous structures as described above without definite corresponding abnormality by CT. Regardless, this is highly suspicious for metastatic disease." The patient was referred to Dr. Jones who recommended a bronchoscopy which was scheduled to be completed in the outpatient setting. At the time of the procedure, the patient did have significant shortness of breath and was sent to the emergency room. The patient did have a CT of the thorax on 01/30/2017 which revealed: "IMPRESSION: 1. There is again noted a large right hilar/ perihilar mass which measures 6.5 cm. This results in high-grade stenosis of the right upper lobe bronchus. 2. Progressive right perihilar airspace opacities with progressive interstitial thickening. This likely represents a combination of lymphangitic spread of disease and a postobstructive pneumonitis. 3. Supraclavicular, mediastinal, and right hilar lymphadenopathy is again noted. 4. Emphysema. 5. The right hilar mass/lymphadenopathy results in narrowing of the SVC." Additionally, the patient did have an MRI of the brain on 01/30/2017 which revealed: "IMPRESSION: 1. 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 2. No abnormal enhancement within the brain to suggest intracranial metastatic disease." In the inpatient setting, the patient has been evaluated by Dr. Wiggins from pulmonary medicine who has recommended a bronchoscopy be performed again to obtain a tissue diagnosis. In the interim, sputum cytology has been obtained and the results are pending. We've been asked to evaluate the patient for consideration of potential radiation therapy. Currently, the patient states that he is having significant discomfort in his right chest wall that radiates to his right upper arm and into his right neck. He does note some numbness and tingling in his right upper extremity which has been there for a long time. He does also complain of some headaches. He denies some dysphagia as well. Past History Past Medical/Surgical History: Anxiety, Sleep Apnea, COPD, Hypertension Social History Smoking Status: Current Every Day Smoker (had quit earlier in 2017, restarted again after finding out about tumor) Hx Tobacco Use In Past Year?: Yes (10 CIGS PER DAY....SMOKING SINCE AGE 11) Do You Dip or Chew Tobacco: No Hx Alcohol Use: No Hx Substance Use : No Allergies Coded Allergies: No Known Allergies (Unverified , 01/29/17) Home Medications Scheduled Alprazolam (Xanax), 1 MG PO QID Aspirin (Aspirin Ec), 81 MG PO AFTERNOON Budesonide/Formoterol Fumarate (Symbicort 160/4.5 Inhaler), 2 PUFFS INH BID Donepezil Hydrochloride (Donepezil Hcl), 1 TAB PO QAM Duloxetine HCl (Cymbalta), 1 TAB PO QAM Fentanyl (Duragesic), 50 MCG TD [id number] Isosorbide Dinitrate (Isordil), 30 MG PO QAM Trazodone Hcl (Trazodone), 2 TAB PO HS [Nebulizer ], Unknown Dose INH UD Scheduled PRN Nitroglycerin (Nitrostat), 0.4 MG UT PRN PRN for CHEST PAIN Miscellaneous Medications Albuterol (Ventolin Hfa), Unknown Dose Review of Systems Ear/Hearing: Ear Side: Bilateral Hearing Ability: Normal Hearing Aid: None Edema: Present?: No Location Body Site Modifier: Bilateral Pain Management Side: Bilateral Patient Preferred Pain Scale: 0 - 10 Initial Pain Intensity: 7.0 Physical Exam Height: 5 (Feet) 9.00 (Inches) 175.3 (Centimeters) 1.7526 (Meters) Weight: 163 (Pounds) 2.2 (Ounces) 74.000 (Kilograms) 95925.000 (Grams) Date Time Temp Pulse Resp B/P Pulse Ox O2 Delivery O2 Flow Rate FiO2 02/01/17 15:33 36.5 92 18 125/78 93 3.0 02/01/17 13:46 91 16 92 Nasal Cannula 3.0 02/01/17 12:00 Nasal Cannula 4.0 02/01/17 11:42 36.7 90 18 115/69 96 3.0 02/01/17 08:00 96 Nasal Cannula 4.0 02/01/17 07:26 36.5 84 18 137/88 97 2.0 02/01/17 05:56 90 20 143/88 93 02/01/17 04:30 36.5 92 20 139/84 95 2.0 02/01/17 04:00 Nasal Cannula 3.0 02/01/17 02:00 91 16 92 Nasal Cannula 3.0 02/01/17 00:00 Nasal Cannula 3.0 01/31/17 23:47 36.5 89 20 129/79 94 3.0 01/31/17 20:10 93 16 96 Nasal Cannula 3.0 01/31/17 20:00 Nasal Cannula 4.0 01/31/17 19:30 36.9 93 20 145/85 93 3.0 General Appearance: + mild distress Head: normocephalic, atraumatic Eyes: normal inspection Neck: + adenopathy present (Bilateral nodules in cervical neck. Bilateral supraclavicular lymph nodes palpable as well. 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 Correa is a 61-year-old gentleman who presents with likely metastatic lung cancer involving multiple bones. The patient has significant discomfort in his right chest wall and has pending compression of the SVC. The patient was previously evaluated by pulmonary medicine and an initial bronchoscopy was attempted in the outpatient setting however the patient had difficulty tolerating the procedure and was brought to the emergency room. The patient will undergo a repeat bronchoscopy tomorrow to obtain a tissue diagnosis and sputum cytology has already been obtained and the results are pending. We were asked to evaluate the patient for consideration of palliative radiation therapy. At this point, I would recommend proceeding with obtaining a tissue diagnosis with confirmation of the type of cancer. After diagnosis is obtained, the patient should be evaluated by medical oncology to determine if he is a candidate for systemic therapy. If the patient is not a candidate for systemic therapy or refuses systemic therapy, we would recommend offering urgent radiation therapy to the mediastinal mass to prevent SVC syndrome. At this point, the patient is not complaining of any pain in his hips bilaterally so we would not recommend any palliative radiation therapy to his femoral necks. We will continue to follow the patient and follow his pathologic results and talk with his other providers in the inpatient setting. If the patient is discharged , case management should be involved if the patient requires radiation therapy due to the fact that the patient does live in [place], [place] which is very far from our facility and he may opt for radiation therapy closer to his home which would be reasonable. Please call us with than any further questions or concerns. Total Time In Consultation I spent 30 minutes examining and counseling the patient. I spent 15 minutes completing this note. Copy To Dion Acosta D.O.; Carlos Wiggins D.O.Int.Med.; Pawan Jones MD
[2017-02-01] MEDS ORDERED: VANCOMYCIN TROUGH ONE (17:30)
--- NOTE | 2017-02-01 20:37 | Pharmacy Progress Note ---
Pharmacy Antibiotic Prog Note Date of Service February 01, 2017. Subjective The patient is currently receiving VANC 1100mg (15mg/kg) IV every 12 hours. * The patient is currently on day # 4 of VANC IV therapy for PNX, post obstructive pneumonitis. Bronch pending 02/02. Objective Height (Feet): 5 Height (Inches): 9.00 Weight (Kilograms): 74.000 Levels: Item Value Date Time Vancomycin Level Trough 12.7 mcg/ml 02/01/17 1745 Vancomycin Level Trough 11.9 mcg/ml 01/31/17 0530 Lab Results (24hrs): Laboratory Tests Test 02/01/17 05:33 Creatinine 1.10 mg/dl Micro Results: Item Value Date Time MRSA DNA Surveillance Screen - Final Complete 02/01/17 0313 Nasal Specimen Negative for MRSA by DNA Probe Recent Pertinent Medications * Day # 4: Zosyn 3.375 grams IV every 8 hours (CI) Pharmacy Consult Assessment & Plan VANC-IV: * This drug level is: Subtherapeutic. * Will slightly INCREASE DOSE & maintain dosing interval * Change to VANC 1300mg IV every 12 hours. * Goal trough level estimate: between 15 - 20 mcg/mL. * If VANC is continued post bronch (MRSA swab (-), reordered trough @ [facility] prior to 02/03 0200 dose. ZOSYN: Continue 3.375 grams IV CI every 8 hours. Pharmacy will continue to follow and will adjust dose/frequency as necessary. Thank you
[2017-02-01] MEDS: TRAZODONE HCL 100 MG TAB PO SCH (21:14)
[2017-02-02] VITALS (28 sets, daily range): BP systolic 112–174; BP diastolic 68–103; PULSE 83–108; TEMP 36.5–37.2; O2SAT 90–98
[2017-02-02] MEDS: IPRATROPIUM BROMIDE NEB SOLN 0.02% 2.5 ML VIAL INH SCH ×4 (01:58→19:24)
[2017-02-02] MEDS: LEVALBUTEROL 1.25MG/0.5ML NEB INH SCH ×4 (01:58→19:24)
[2017-02-02] MEDS: HYDROmorphone HCL 2 MG TAB PO PRN (02:12)
[2017-02-02] MEDS: VANCOMYCIN INJ 1,300 MG in SODIUM CHLORIDE 0.9% 250ML 250 ML IV SCH ×2 (02:13→13:45)
[2017-02-02] MEDS: MoRPHine SULFATE 4 MG/ML 1 ML CARP\\VIAL IV PRN (04:02)
[2017-02-02] MEDS ORDERED: NURSING VERBAL MED ORDER ONE ×4 (05:15→11:30)
[2017-02-02] MEDS: HYDROmorphone INJ 1 MG/ML SYR IV PRN ×4 (06:15→23:24)
[2017-02-02] MEDS: PIPERACILL/TAZOBAC IV 3.375 GM in DEXTROSE 5% 100ML IV SCH ×3 (07:40→23:24)
[2017-02-02] MEDS: CHECK FENTANYL PATCH PLACEMENT SCH ×2 (07:40→16:14)
[2017-02-02] MEDS: DORNASE ALFA (2500U) 2.5MG/2.5ML INH SCH ×2 (07:44→19:49)
--- NOTE | 2017-02-02 07:51 | History & Physical Bridge Note ---
H&P Re-Evaluation Bridge Note: I have examined the patient, reviewed the History & Physical and in the interval since the performance of the History & Physical I have noted the following changes of clinical significance: No changes noted
--- NOTE | 2017-02-02 07:54 | PROGRESS NOTE ---
DATE: 02/02/2017 SUBJECTIVE: The patient is comfortable this morning, continues to have pain in the right shoulder. Denies cough or shortness of breath. He states he slept fairly well last night. He does state the pain medicine works only intermittently. He is n.p.o. for bronchoscopy today. He states he feels considerably improved from a respiratory standpoint than he did at the time of admission. His vital signs are stable and he is afebrile. Blood pressure 151/95, oxygen saturation 94% on room air. I and O was 2722 in and 400 out. Weight 74 kilograms yesterday. MEDICATIONS: Reviewed. He was started on some hydromorphone last night by Dr. Myers. OBJECTIVE: NECK: There is no neck vein distention or HJR. HEENT: Right supraclavicular node is readily palpable. No other adenopathy is palpable as far as I can tell. HEART: Regular rate and rhythm. LUNGS: Revealed decreased breath sounds, especially at the right base. ABDOMEN: Soft, nontender. EXTREMITIES: He has no cyanosis, clubbing or edema. LABORATORY DATA: Glucose is 150. BUN and creatinine were stable. Platelet count was decreased at 91,000 on the 28. MRSA DNA surveillance screen is negative. Sputum cytology is pending. IMPRESSION: 1. Metastatic carcinoma, probably bronchogenic malignancy with supraclavicular and low cervical adenopathy with multiple metastases to the bone. 2. Chronic obstructive lung disease. RECOMMENDATIONS: 1. Continue his present medications. He may have a postobstructive pneumonia. 2. Schedule for bronchoscopy today. Notes from Dr. Anne Stephens are noted. No palliative radiation is recommended at the femoral necks at this point. 3. Adjust pain medications accordingly. Watch the patient for respiratory insufficiency on high doses of fentanyl. 4. At this point, I would decrease the methylprednisolone to 20 mg IV q. 8 hours with prednisone 20 mg daily with a taper over about 10 days.
[2017-02-02] MEDS: ALPRAZOLAM 0.5 MG TAB PO SCH ×4 (07:56→20:54)
[2017-02-02] MEDS: METHYLPREDNISOLONE IV 40 MG in SYRINGE 0 ML IV SCH ×3 (07:56→16:11)
[2017-02-02] MEDS: DOCUSATE SODIUM 100 MG CAP PO SCH ×2 (07:56→20:55)
[2017-02-02] MEDS: ISOSORBIDE DINITRATE 10 MG TAB PO SCH (07:57)
[2017-02-02] MEDS: DONEPEZIL HCL 10 MG TAB PO SCH (07:57)
[2017-02-02] MEDS: DULOXETINE HCL 60 MG CAP PO SCH (07:57)
[2017-02-02] MEDS: NICOTINE 21 MG/24 HR TDSY TD SCH (07:58)
[2017-02-02] MEDS: HEPARIN SOD 5000 UNIT/0.5 ML CARP SQ SCH ×2 (08:55→20:59)
--- NOTE | 2017-02-02 10:30 | Bronchoscopy Procedure Note ---
Bronchoscopy Procedure Note Procedure: Bronchoscopy, conscious sedation, IBbx and BAL RUL Consent: Obtained through the patient placed into the chart Preprocedural diagnosis: lung mass Postprocedural diagnosis: lung mass/Lung ca Start time: 1045 End time: 1113 Total time: 28 min Analgesia: 2% liquid lidocaine: Via nebulizer 4% gel lidocaine: Via right naris 2% liquid lidocaine: Via bronchoscopy Sedation: Versed IV: 3 mg Fentanyl IV: 75 g Procedure: The [employer] video bronchoscope was used for this procedure and passed through the right naris Right naris/posterior naris/posterior oropharynx: Anatomically within normal limits Glottis: Anatomically within normal limits Vocal cords: Proper abduction and abduction, anatomically within normal limits Subglottis/trachea/Zully: erythema and widened Right bronchial tree: Right mainstem bronchus: erythematous with mucosal changes Right upper lobe: diffuse mucosal changes with lobar obstruction Bronchus intermedius: intra-mucosal changes Right middle lobe: intra-mucosal changes Right lower lobe: Anatomically within normal limits Findings: diffuse mucosal changes Left bronchial tree: Left mainstem bronchus: Anatomically within normal limits Left upper lobe: Anatomically within normal limits Lingula: Anatomically within normal limits Left lower lobe: Anatomically within normal limits Findings: No significant findings noted Bronchial alveolar lavage: 40cc or the RUL Intra-bronchial Bx/RUL Secondary zully bx: IBBx x8 along with RUL secondary zully x2 Complications: None EBL: 2cc Follow-up: transfer back to his inpatient room
--- NOTE | 2017-02-02 10:30 | Procedure Note ---
Pre-Mod Sedation Assessment General Date of Moderate Sedation: February 02, 2017. Vital Signs: Vital Signs Past 12 Hours Date Time Temp Pulse Resp B/P Pulse Ox O2 Delivery O2 Flow Rate FiO2 02/02/17 08:29 Nasal Cannula 3.0 02/02/17 07:56 36.8 83 18 143/96 97 2.0 02/02/17 07:30 90 16 93 Nasal Cannula 3.0 02/02/17 07:29 93 Nasal Cannula 3.0 02/02/17 04:49 36.5 85 20 151/95 94 Nasal Cannula 3.0 02/02/17 04:00 Nasal Cannula 3.0 02/02/17 01:58 92 16 93 Nasal Cannula 3.0 02/02/17 00:00 Nasal Cannula 3.0 02/01/17 23:46 36.3 91 16 135/84 94 Nasal Cannula 3.0 02/01/17 22:46 86 155/93 Review Cardiovascular: regular rate, rhythm, no edema, no gallop, no JVD, no murmur, normal peripheral pulses Abdomen: normal bowel sounds, non tender, soft, no organomegaly, no pulsatile mass, normal rectal exam, occult blood negative Lungs: + pertinent finding (rhonchi greatest in the RLL anterior subsegment ) Airway Class: II Pre-Sedation Airway Assessment Oral Cavity: Dentures Able to Visualize Vocal Cords: Yes Short Thick Neck: No Hx of Sleep Apnea: No Smoking Status: Current Some Day Smoker ASA Classification: Class III Procedure Planning Contraindications-for Mod Sed: None Yes Notes The planned sedation has been discussed with the patient and consent obtained. I have identified the patient, determined the appropriateness of sedation and have assessed the patient immediately prior to the procedure. All medicine(s) and interventions are by my order.
--- NOTE | 2017-02-02 11:25 | Procedure Note ---
Post-Moderate Sedation Plan General Date of Moderate Sedation February 02, 2017. Vital Signs: Vital Signs Past 12 Hours Date Time Temp Pulse Resp B/P Pulse Ox O2 Delivery O2 Flow Rate FiO2 02/02/17 11:15 84 21 161/95 92 Nasal Cannula 15.0 02/02/17 11:10 88 21 153/95 92 Nasal Cannula 15.0 02/02/17 11:05 86 21 149/88 96 Nasal Cannula 15.0 02/02/17 11:00 90 22 112/77 92 Nasal Cannula 15.0 02/02/17 10:55 90 22 142/88 98 Nasal Cannula 6.0 02/02/17 10:50 95 14 152/92 98 Nasal Cannula 6.0 02/02/17 10:45 96 14 142/91 98 Nasal Cannula 6.0 02/02/17 10:40 98 20 145/93 98 Nasal Cannula 6.0 02/02/17 10:30 103 21 129/83 98 Nasal Cannula 3.0 02/02/17 08:29 Nasal Cannula 3.0 02/02/17 07:56 36.8 83 18 143/96 97 2.0 02/02/17 07:30 90 16 93 Nasal Cannula 3.0 02/02/17 07:29 93 Nasal Cannula 3.0 02/02/17 04:49 36.5 85 20 151/95 94 Nasal Cannula 3.0 02/02/17 04:00 Nasal Cannula 3.0 02/02/17 01:58 92 16 93 Nasal Cannula 3.0 02/02/17 00:00 Nasal Cannula 3.0 02/01/17 23:46 36.3 91 16 135/84 94 Nasal Cannula 3.0 Review - Discharge Plan Post Moderate Sedation Plan: On clinical assessment, the patient appears to have tolerated the conscious sedation without complications. Patient is recovering as anticipated. Patient will continue to be monitored by nursing and may be sent back to his inpatient room.
[2017-02-02] MEDS ORDERED: MIDAZOLAM HCL 5 MG/ML 1 ML VIAL IV ONE (11:45)
[2017-02-02] MEDS ORDERED: FENTANYL CITRATE INJ 50 MCG/1 ML 2 ML VIAL IV ONE (11:45)
--- NOTE | 2017-02-02 13:13 | DIAGNOSTIC IMAGING REPORT ---
SINGLE VIEW CHEST CLINICAL HISTORY: Status post bronchoscopy. Lung mass. FINDINGS: An AP, portable, upright chest radiograph is compared to chest x-ray dated 01/29/2017 and correlated with chest CT dated 01/30/2017. The examination is degraded by portable technique and patient rotation. The heart is top normal in size and there is atherosclerotic calcification of the thoracic aorta. Advanced emphysema and chronic interstitial thickening are unchanged. A large right perihilar/upper lobe lung mass is again seen. Patchy airspace consolidation in the right upper lobe has improved from 01/29/2017. There is persistent interstitial thickening and nodularity in the right upper lobe. The left lung is grossly clear. No large pleural effusion or pneumothorax is seen. The skeletal structures are osteopenic. The bony thorax is grossly intact. IMPRESSION: 1. No pneumothorax is identified post procedure. 2. Advanced emphysema an a large right perihilar/upper lobe lung mass have not significant change from previous. 3. Improving airspace consolidation throughout the right upper lobe as compared to 01/29/2017. This likely represents improving postobstructive pneumonitis. Superimposed lymphangitic spread of tumor is again suspected. 4. The left lung appears clear. Electronically signed by: Aamir Carmichael M.D. 02/02/2017 1:11 PM Dictated Date/Time: 02/02/2017 1:09 PM
[2017-02-02] MEDS ORDERED: MIDAZOLAM HCL 1 MG/ML 2ML VIAL IV ONE (14:49)
[2017-02-02] MEDS ORDERED: FENTANYL CITRATE 100 MCG 2 ML CARP IV ONE (14:49)
--- NOTE | 2017-02-02 15:42 | Progress Note ---
Subjective Date of Service: February 02, 2017. Subjective Pt evaluation today including: conversation w/ patient, physical exam, chart review, lab review, review of studies, conversation w/ loans consultant Pt reports pain uncontrolled 8/10 central chest pain radiating into right shoulder Denies any worsening shortness of breath States "Im going to anyway, I just want some pain meds" Review of Systems Constitutional: No chills, No fever Respiratory: No cough, No shortness of breath, No sputum, No wheezing Cardiac: No chest pain, No orthopnea Abdomen: No diarrhea, No nausea, No pain, No vomiting Musculoskeletal: + joint pain, + muscle pain Male : No dysuria, No urinary frequency Objective Vital Signs Date Time Temp Pulse Resp B/P Pulse Ox O2 Delivery O2 Flow Rate FiO2 02/02/17 14:27 92 16 96 Nasal Cannula 3.0 02/02/17 13:30 36.9 95 20 174/98 96 Nasal Cannula 5.0 02/02/17 13:00 37.1 94 18 123/71 96 Nasal Cannula 02/02/17 12:27 37.2 97 22 157/83 93 Nasal Cannula 5.0 02/02/17 12:12 36.8 92 22 160/99 92 Mask 6.0 02/02/17 12:05 36.8 92 22 160/99 93 Mask 6.0 02/02/17 12:00 Nasal Cannula 3.0 02/02/17 11:45 89 18 118/78 94 Mask 6.0 02/02/17 11:35 88 18 126/84 94 Mask 6.0 02/02/17 11:25 89 21 157/103 94 Mask 6.0 02/02/17 11:15 84 21 161/95 92 Nasal Cannula 15.0 02/02/17 11:15 36.8 89 21 157/103 92 Mask 10.0 02/02/17 11:10 88 21 153/95 92 Nasal Cannula 15.0 02/02/17 11:05 86 21 149/88 96 Nasal Cannula 15.0 02/02/17 11:00 90 22 112/77 92 Nasal Cannula 15.0 02/02/17 10:55 90 22 142/88 98 Nasal Cannula 6.0 02/02/17 10:50 95 14 152/92 98 Nasal Cannula 6.0 02/02/17 10:45 96 14 142/91 98 Nasal Cannula 6.0 02/02/17 10:40 98 20 145/93 98 Nasal Cannula 6.0 02/02/17 10:30 103 21 129/83 98 Nasal Cannula 3.0 02/02/17 08:29 Nasal Cannula 3.0 02/02/17 07:56 36.8 83 18 143/96 97 2.0 02/02/17 07:30 90 16 93 Nasal Cannula 3.0 02/02/17 07:29 93 Nasal Cannula 3.0 02/02/17 04:49 36.5 85 20 151/95 94 Nasal Cannula 3.0 02/02/17 04:00 Nasal Cannula 3.0 02/02/17 01:58 92 16 93 Nasal Cannula 3.0 02/02/17 00:00 Nasal Cannula 3.0 02/01/17 23:46 36.3 91 16 135/84 94 Nasal Cannula 3.0 02/01/17 22:46 86 155/93 02/01/17 21:21 36.8 83 18 143/96 97 Nasal Cannula 3.0 02/01/17 20:23 97 16 93 Nasal Cannula 3.0 02/01/17 20:15 36.9 98 20 163/103 95 2.0 02/01/17 20:00 93 Nasal Cannula 3.0 02/01/17 16:00 93 Nasal Cannula 3.0 Physical Exam General Appearance: WD/WN, + mild distress Neck: supple, thyroid normal Respiratory/Chest: + decreased breath sounds, + wheezing Cardiovascular: no edema, no gallop Abdomen: non tender, soft Neurologic/Psychiatric: alert, oriented x 3 Laboratory Results Last 24 Hours Test 02/01/17 17:45 02/01/17 22:26 Vancomycin Level Trough 12.7 mcg/ml Bedside Glucose 150 mg/dl Assessment and Plan 61-year-old gentleman with lung mass being admitted for acute on chronic respiratory insufficiency: Per report patient has other history of RUL masses and adenopathy, COPD, HTN, anxiety and agoraphobia, chronic hepatitis C, and chronic pain who presented for a direct admission following a bronchoscopy attempt on 01/29, with Dr. Jones. The patient had been scheduled for EBUS/ENB for further work up of CT findings in December 2015 that were concerning for malignancy. The procedures were aborted after the patient began to decompensate and go into respiratory failure. Then he was admitted to the hospital for pain control, treatment for the pneumonia, and further evaluation for the possible cancer disease Right chest wall pain and right shoulder pain Likely consistent with metastatic cancer disease Has started MS Contin for baseline pain coverage and then narcotic she's morphine IV for the breakthrough pain Consulted pain management, cont fentanyl and start on morphine IR Rad Onc consulted, no immediate need for radiation, will f/u as outpt Lung mass and possible postobstructive pneumonia: Cont zosyn and vancomycin, will be dced on augmentin for 10 days in addition to steroid taper Pulm consulted Bronch 02/02 with mult widespread lesions likely of metastatic disease, awaiting path CT as well as PET are highly suggestive of primary lung carcinoma. Rad onc consulted for femoral neck mets ACOS: very severe COPD and FEV1 of 32%. He is also noted on pulmonary function tests to have significant reversibility both in his FEV1 and FVC. Continue IV steroids and nebulizers. GI and DVT prophylaxis Continued [facility] stay due to: multiple IV medications needed Discharge planning: home
[2017-02-02] MEDS ORDERED: GABAPENTIN 300 MG CAP PO ONE (16:00)
[2017-02-02] MEDS: MoRPHine SULFATE IR 15 MG TAB (IMMEDIATE RELEASE) PO PRN (19:45)
[2017-02-02] MEDS: TRAZODONE HCL 100 MG TAB PO SCH (20:55)
[2017-02-03] VITALS (10 sets, daily range): BP systolic 134–187; BP diastolic 84–113; PULSE 78–104; TEMP 36.4–36.5; O2SAT 92–97
[2017-02-03] MEDS: CHECK FENTANYL PATCH PLACEMENT SCH ×2 (00:01→07:14)
[2017-02-03] MEDS ORDERED: VANCOMYCIN TROUGH SCH (01:30)
[2017-02-03] MEDS: LEVALBUTEROL 1.25MG/0.5ML NEB INH SCH ×3 (02:17→14:12)
[2017-02-03] MEDS: IPRATROPIUM BROMIDE NEB SOLN 0.02% 2.5 ML VIAL INH SCH ×3 (02:17→14:12)
[2017-02-03] MEDS: HYDROmorphone INJ 1 MG/ML SYR IV PRN ×3 (02:26→07:13)
[2017-02-03] MEDS: VANCOMYCIN INJ 1,300 MG in SODIUM CHLORIDE 0.9% 250ML 250 ML IV SCH (03:17)
[2017-02-03] MEDS: METHYLPREDNISOLONE IV 40 MG in SYRINGE 0 ML IV SCH ×2 (07:14→12:00)
[2017-02-03] MEDS: PIPERACILL/TAZOBAC IV 3.375 GM in DEXTROSE 5% 100ML IV SCH (07:22)
[2017-02-03] MEDS: DORNASE ALFA (2500U) 2.5MG/2.5ML INH SCH (07:24)
[2017-02-03] MEDS: DOCUSATE SODIUM 100 MG CAP PO SCH (08:40)
[2017-02-03] MEDS: ALPRAZOLAM 0.5 MG TAB PO SCH ×2 (08:40→13:29)
[2017-02-03] MEDS: ISOSORBIDE DINITRATE 10 MG TAB PO SCH (08:41)
[2017-02-03] MEDS: DONEPEZIL HCL 10 MG TAB PO SCH (08:41)
[2017-02-03] MEDS: HEPARIN SOD 5000 UNIT/0.5 ML CARP SQ SCH (08:44)
[2017-02-03] MEDS: NICOTINE 21 MG/24 HR TDSY TD SCH (08:45)
--- NOTE | 2017-02-03 08:48 | PULMONARY PROGRESS NOTE ---
DATE: 02/03/2017 HISTORY OF PRESENT ILLNESS: The patient is comfortable this morning. He states the pain meds are working fairly well for him. He was drinking some Coke this morning. He tolerated the bronchoscopy yesterday. I spoke with Dr. Jones and the patient has extensive disease. His sputum for cytology was negative. The biopsies are pending. His postprocedure chest x-ray showed no pneumothorax. Extensive evidence of tumor is noted. PHYSICAL EXAMINATION: VITAL SIGNS: Stable. His blood pressure is 146/98, oxygen saturation 94% on room air. I\T\O is 2722 in and 400 out on the first; 1363 in and 1925 out. Weight 75.5 kilograms, which probably is stable for him. HEENT: According to nurses' notes, he continued to have some discomfort in the shoulder and neck did receive some Dilaudid which may work very well for him. The right supraclavicular node has not changed. No subcutaneous emphysema is noted. HEART: Regular rate and rhythm. LUNGS: Revealed decreased breath sounds at the right base with some scattered rhonchi, no wheezing noted. ABDOMEN: Soft, nontender. EXTREMITIES: He has no cyanosis, clubbing or edema. LABORATORY DATA: PRP is pending. Glucose is 150. AFB smears and fungal smears are pending. Gram stain is pending. The DNA surveillance screen was negative for MRSA. IMPRESSION AND PLAN: Diffuse metastatic carcinoma. The pathology is pending. At this point, apparently the patient wants to be comfort measures. His code status should be changed and perhaps hospice evaluation could be obtained. We will await the results of the pathology and oncologic evaluation would be recommended as well to see if there is any treatment that might be render to prolong his life. I think comfort measures would be appropriate at this point. I would continue on his IV antimicrobial agents. If there is no evidence Staph, I think the vancomycin could be discontinued. Overall, he is comfortable this morning.
[2017-02-03] MEDS ORDERED: FENTANYL PATCH REMOVE & WASTE SCH (08:59)
[2017-02-03] MEDS ORDERED: GABAPENTIN 300 MG CAP PO SCH (09:00)
[2017-02-03] MEDS ORDERED: FENTANYL 100 MCG/HR TDSY TD SCH (09:00)
[2017-02-03 09:06] LABS: CREATININE 0.82 mg/dl (0.60-1.40)
[2017-02-03] MEDS ORDERED: VANCOMYCIN INJ 1,300 MG in SODIUM CHLORIDE 0.9% 250ML 250 ML IV SCH (10:00)
[2017-02-03] MEDS: DULOXETINE HCL 60 MG CAP PO SCH (10:06)
[2017-02-03] MEDS: MoRPHine SULFATE IR 15 MG TAB (IMMEDIATE RELEASE) PO PRN (11:46)
[2017-02-03] MEDS ORDERED: AMOX875T PO (12:56)
[2017-02-03] MEDS ORDERED: PRD10 PO (12:56)
[2017-02-03] MEDS ORDERED: DRGTP100 TD (12:56)
[2017-02-03] MEDS ORDERED: MRP15 PO (12:56)
--- NOTE | 2017-02-03 12:59 | Discharge Instructions ---
Discharge Instructions Date of Service February 03, 2017. Admission Reason for Admission: Hypoxia, Post Op Pneumonia Discharge Discharge Diagnosis / Problem: Hypoxia, lung mass, severe copd Discharge Goals Goal(s): Decrease discomfort, Improve function, Increase independence, Improve disease control, Learn about illness, Diagnostic testing, Therapeutic intervention Activity Recommendations Activity Limitations: resume your previous activity Exercise/Sports Limitations: as tolerated Shower/Bathe: no limitations . Instructions / Follow-Up Instructions / Follow-Up Patient to be discharged home with home health Oxygen to be set up with home health, to use 2 liters of oxygen on ambulation Prescriptions sent for antibiotic augmentin twice a day for 10 days, steroid taper as directed, fentanyl patch 100mcg take apply every 3 days, and morphine tablets to take every 4 hrs as needed Please follow up with Dr Jones and Dr rucker in 1-2 weeks Current Hospital Diet Patient's current hospital diet: AHA Diet (Heart Healthy) Discharge Diet Recommended Diet: AHA Diet (Heart Healthy) Pending Studies Studies pending at discharge: no Medical Emergencies . Who to Call and When: Medical Emergencies: If at any time you feel your situation is an emergency, please call 911 immediately. . Non-Emergent Contact Non-Emergency issues call your: Primary Care Provider Call Non-Emergent contact if: you have a fever, your pain is worsening . . "Provider Documentation" section prepared by Dion Acosta. . VTE Core Measure Inpt VTE Proph given/why not?: Unfractionated heparin SQ, T.E.D. Stockings, SCD 's
--- NOTE | 2017-02-03 15:23 | Radiation Oncology Progress Nt ---
Radiation Oncology Progress Nt Date of Service Date of Service: February 03, 2017. Subjective Pt evaluation today including: conversation w/ patient, conversation w/ travel consultant Objective Vital Signs Date Time Temp Pulse Resp B/P Pulse Ox O2 Delivery O2 Flow Rate FiO2 02/03/17 14:12 104 16 96 Nasal Cannula 2.0 02/03/17 13:10 36.5 100 18 92 Nasal Cannula 02/03/17 12:15 36.5 100 18 134/84 92 Nasal Cannula 2.0 02/03/17 12:00 Nasal Cannula 2.0 02/03/17 09:00 91 134/90 02/03/17 08:00 97 Room Air 02/03/17 07:24 98 16 97 Nasal Cannula 2.0 02/03/17 07:23 36.5 78 20 187/99 92 Nasal Cannula 2.0 178/113 02/03/17 07:16 98 16 97 Nasal Cannula 2.0 02/03/17 05:27 36.4 82 20 146/98 94 Nasal Cannula 4.0 02/03/17 04:00 Nasal Cannula 4.0 02/03/17 02:17 103 14 96 Nasal Cannula 4.0 02/03/17 00:00 Nasal Cannula 4.0 02/02/17 23:38 36.7 96 20 144/82 95 Nasal Cannula 4.0 02/02/17 20:00 Nasal Cannula 4.0 02/02/17 19:49 102 16 93 Nasal Cannula 3.0 02/02/17 19:48 36.9 102 16 142/81 90 Room Air 02/02/17 19:28 108 16 96 Nasal Cannula 4.0 02/02/17 16:20 Nasal Cannula 4.0 02/02/17 15:53 36.5 100 16 134/68 93 Nasal Cannula 4.0 Laboratory Results Last 24 Hours Test 02/03/17 03:00 02/03/17 07:42 Vancomycin Level Trough 12.8 mcg/ml Creatinine 0.82 mg/dl Est Creatinine Clear Calc Drug Dose 94.6 ml/min Estimated GFR () 110.6 Estimated GFR (Non- 95.4 Assessment and Plan Today, I did have a discussion with Dr. Erick Jones from pulmonary medicine who did perform a bronchoscopy and biopsy of the patient's pulmonary mass; the pathology is still pending however suspicious for primary lung cancer. Dr. Jones has had multiple conversations with the patient about potential therapy after confirming the tissue diagnosis and the patient has clearly expressed that he has no interest in pursuing systemic chemotherapy. I did have a conversation with Dr. Jones today regarding the potential role of palliative radiation therapy to palliative patient's symptoms including pain in the right chest wall as well as prevent development of SVC syndrome. After my conversation with Dr. Jones, I did speak with the patient regarding potential palliative radiation therapy. The patient explained to me that he is adamant about going home and being closer to his family which is in [place], [place]; the patient explained to me that he does not have transportation as well. The patient expressed to me that if he could have transportation back- and-forth for radiation therapy he would gladly consider palliative radiation therapy. I have spoken to Dr. Acosta and recommended that the patient either be considered for palliative radiation therapy here or that he is referred to [facility] for radiation oncology since that is closer to his home and they can provide radiation therapy (I have spoken to Dr. Ballard from radiation oncology already). Dr. Aocsta will speak with the patient and then call me to make final arrangements regarding radiation therapy. Continued [facility] stay due to: multiple IV medications needed Discharge planning: home
--- NOTE | 2017-02-03 15:45 | Discharge Summary ---
Discharge Summary Date of Service February 03, 2017. Discharge Summary Admission Date: Jan 29, 2017 at 13:08 Discharge Date: February 03, 2017 Discharge Disposition: Home with services Principal Diagnosis: Pulmnonary malignancy, postobstructive PNA Consultations: Pulmonary Radiation oncologist Medication Reconciliation New Medications: Amoxicillin & Pot Clavulanate (Augmentin 875-125 mg) 1 Tab Tab 1 TAB PO BID for 10 Days, #20 TAB Prednisone (Prednisone) 10 Mg Tab 10 MG PO UD for 16 Days, #40 TABS Take 4 pills daily x 4 days, then 3 pills daily for 4 days, then 2 pills daily for 4 days then 1 pill daily for 4 days then stop Fentanyl (Fentanyl) 100 Mcg Tdsy 100 MCG TD Q3D@0900 for 30 Days, #10 PATCH Morphine Sulfate (Morphine Sulfate) 15 Mg Tab 15 MG PO Q4 PRN for Pain, #30 TAB Continued Medications: Albuterol (Ventolin Hfa) Unknown Strength Aers Unknown Dose 2 PUFFS PRN SOB PT INSTRUCTED TO BRING THIS INAHLER DAY OF SURGERY Alprazolam (Xanax) 1 Mg Tab 1 MG PO QID, TAB Aspirin (Aspirin Ec) 81 Mg Tab 81 MG PO AFTERNOON PT INSTRUCTED TO CALL SURGEON FOR PRE OP INSTRUCTIONS Budesonide/Formoterol Fumarate (Symbicort 160/4.5 Inhaler) 120 Puffs/ Aero 2 PUFFS INH BID for 30 Days, #1 INHALER 3 Refills Donepezil Hydrochloride (Donepezil Hcl) 10 Mg Tab 1 TAB PO QAM Duloxetine HCl (Cymbalta) 60 Mg Cap 1 TAB PO QAM Isosorbide Dinitrate (Isordil) 30 Mg Tab 30 MG PO QAM, TAB Nitroglycerin (Nitrostat) 0.4 Mg Tab 0.4 MG UT PRN PRN for CHEST PAIN, BTL Trazodone Hcl (Trazodone) 100 Mg Tab 2 TAB PO HS, TAB [Nebulizer ] () Unknown Strength Unknown Dose INH UD UNKNOWN NAME AND DOSE OF NEB - PT REPORTS DOES NOT USE THIS CONSISTENTLY Discontinued Medications: Fentanyl (Duragesic) 50 Mcg Tdsy 50 MCG TD [id number], PATCH Discharge Exam Review of Systems: Constitutional: No chills, No fever Respiratory: + cough, + dyspnea at rest, + shortness of breath, No hemoptysis, No sputum, No wheezing Cardiovascular: + chest pain, No edema, No orthopnea Abdomen: No diarrhea, No nausea, No pain, No vomiting Musculoskeletal: + joint pain, + muscle pain Genitourinary - Male: No dysuria, No hematuria, No urinary frequency Neurologic: No paralysis, No weakness Physical Exam: General Appearance: WD/WN, + mild distress Neck: supple, no adenopathy Respiratory/Chest: + decreased breath sounds, + wheezing Cardiovascular: no edema, no gallop Abdomen / GI: non tender, soft Neurologic/Psychiatric: alert, oriented x 3 Hospital Course 61-year-old gentleman with lung mass being admitted for acute on chronic respiratory insufficiency: Per report patient has other history of RUL masses and adenopathy, COPD, HTN, anxiety and agoraphobia, chronic hepatitis C, and chronic pain who presented for a direct admission following a bronchoscopy attempt on 01/29, with Dr. Jones. The patient had been scheduled for EBUS/ENB for further work up of CT findings in December 2015 that were concerning for malignancy. The procedures were aborted after the patient began to decompensate and go into respiratory failure. Then he was admitted to the hospital for pain control, treatment for the pneumonia, and further evaluation for the possible cancer disease Right chest wall pain and right shoulder pain Likely consistent with metastatic cancer disease Has started MS Contin for baseline pain coverage and then narcotic she's morphine IV for the breakthrough pain Consulted pain management, cont fentanyl and start on morphine IR, possibly palliative care as OP Rad Onc consulted, no immediate need for radiation, will f/u as outpt Lung mass and possible postobstructive pneumonia: Cont zosyn and vancomycin, will be dced on augmentin for 10 days in addition to steroid taper Pulm consulted Bronch 02/02 with mult widespread lesions likely of metastatic disease, awaiting path CT as well as PET are highly suggestive of primary lung carcinoma. Rad onc consulted for femoral neck mets ACOS: very severe COPD and FEV1 of 32%. He is also noted on pulmonary function tests to have significant reversibility both in his FEV1 and FVC. Continue IV steroids and nebulizers. GI and DVT prophylaxis Total Time Spent: Greater than 30 minutes This includes examination of the patient, discharge planning, medication reconciliation, and communication with other providers. Discharge Instructions Please refer to the electronic Patient Visit Report (Discharge Instructions) for additional information. Additional Copies To GLROIA NUNES
[2017-02-03] MEDS ORDERED: CHECK FENTANYL PATCH PLACEMENT SCH (16:00)
== END 2017-02-03 14:50 | disposition home health service (06) | DRG 166 ==
LOC: CANRESERV → ENRESERVDT → ENRESERVTM → C.ACU 11:00 → C.MED 13:08
PROVIDERS: ADMIT Hospitalist; ATTEND Hospitalist
PROC: 0BB48ZX Excision of Right Upper Lobe Bronchus, Via Natural or Artificial Opening Endoscopic, Diagnostic (ICD-10-PCS; principal; 2017-02-02)
PROC: 0B9C8ZZ Drainage of Right Upper Lung Lobe, Via Natural or Artificial Opening Endoscopic (ICD-10-PCS; principal; 2017-02-02)
PROC: 0BB28ZX Excision of Carina, Via Natural or Artificial Opening Endoscopic, Diagnostic (ICD-10-PCS; principal; 2017-02-02)
DX: J95.88 Other intraoperative complications of respiratory system, not elsewhere classified (principal); J18.9 Pneumonia, unspecified organism; C34.91 Malignant neoplasm of unspecified part of right bronchus or lung; C79.51 Secondary malignant neoplasm of bone; J44.9 Chronic obstructive pulmonary disease, unspecified; R06.89 Other abnormalities of breathing; F41.9 Anxiety disorder, unspecified; I10 Essential (primary) hypertension; F40.01 Agoraphobia with panic disorder; B18.2 Chronic viral hepatitis C; F17.210 Nicotine dependence, cigarettes, uncomplicated; I25.10 Atherosclerotic heart disease of native coronary artery without angina pectoris; M51.36 Other intervertebral disc degeneration, lumbar region; Z83.3 Family history of diabetes mellitus; Z82.49 Family history of ischemic heart disease and other diseases of the circulatory system; Z82.3 Family history of stroke; Z79.82 Long term (current) use of aspirin